=== PATIENT | female | born 1955 | race Caucasian/White ===

== ENCOUNTER 2017-05-17 10:00 | Day surgery (SDC) | payer MEDICARE, OTHER ==
[2017-05-13 14:02] LABS: BASOPHILS % (AUTO) 0.3 % (0-1); EOSINOPHILS # (AUTO) 0.2 X10'3 (0-0.9); EOSINOPHILS % (AUTO) 3.1 % (0-6); HEMATOCRIT 34.8 % (35.0-45.0); HEMOGLOBIN 11.3 g/dl (12.0-16.0); LYMPHOCYTES # (AUTO) 2.5 X10'3 (1.1-4.8); MEAN CORPUSCULAR HEMOGLOBIN 28.3 PG (27.0-31.0); MEAN CORPUSCULAR HGB CONC 32.6 % (33.0-36.5); MEAN CORPUSCULAR VOLUME 87.1 FL (78-98); MEAN PLATELET VOLUME 7.5 FL (7.4-10.4); MONOCYTES # (AUTO) 0.6 X10'3 (0-0.9); MONOCYTES % (AUTO) 8.3 % (2-12); NEUTROPHILS # (AUTO) 4.1 X10'3 (1.8-7.7); NEUTROPHILS % (AUTO) 54.3 % (42-75); PLATELET COUNT 317 X10'3 (140-440); RED CELL DISTRIBUTION WIDTH 15.8 % (11.5-14.5); WHITE BLOOD COUNT 7.5 X10'3 (4.5-11.0)
[2017-05-13 14:10] LABS: ALBUMIN 3.2 G/DL (3.4-5.0); ANION GAP 5 (8-16); BLOOD UREA NITROGEN 19 MG/DL (7-18); BUN/CREATININE RATIO 18.3 (6.6-38.0); CALCIUM 9.7 MG/DL (8.5-10.1); CHLORIDE 109 MMOL/L (99-107); CREATININE 1.04 MG/DL (0.40-0.90); GLUCOSE 97 MG/DL (70-104); POTASSIUM 4.6 MMOL/L (3.5-5.1); SODIUM 141 MMOL/L (135-145); TOTAL CARBON DIOXIDE 27.1 MMOL/L (24-32); eGFR 54 ML/MIN
[2017-05-13 14:12] LABS: INR 1.1 INR; PARTIAL THROMBOPLASTIN TIME 27 SECONDS (22-32); PROTHROMBIN TIME 11.2 SECONDS (9.0-12.0)
[2017-05-17] VITALS (11 sets, daily range): BP systolic 118–137; BP diastolic 42–77
[~2017-05-17] VITALS: Ht 165.1 cm; Wt 53.8 kg
[2017-05-17] MEDS ORDERED: ATOR80TA PO (10:26)
[2017-05-17] MEDS ORDERED: FLUO40CA10 PO (10:29)
[2017-05-17] MEDS ORDERED: LISI2.5T2 PO (10:29)
[2017-05-17] MEDS ORDERED: normal saline 1000ml 1,000 ML IV SCH ×2 (10:30→13:25)
[2017-05-17] MEDS ORDERED: ASPI81TA52 PO (10:30)
[2017-05-17] MEDS ORDERED: diphenhydrAMINE 25mg capsule PO PRN (10:30)
[2017-05-17] MEDS ORDERED: LORazepam 0.5 MG tablet PO PRN (10:30)
[2017-05-17] MEDS ORDERED: MYCO500T PO (10:31)
[2017-05-17] MEDS ORDERED: LEVO125T8 PO (10:32)
[2017-05-17] MEDS ORDERED: TICA90TA PO (10:33)
[2017-05-17] MEDS ORDERED: METO50TA7 PO (10:34)
[2017-05-17] MEDS ORDERED: ALB0.5UD IH (10:34)
[2017-05-17] MEDS ORDERED: TIOT18CA3 PO (10:35)
[2017-05-17] MEDS ORDERED: PRED5TAB PO (10:36)
[2017-05-17] MEDS ORDERED: TACR1CAP28 PO (10:36)
[2017-05-17] MEDS ORDERED: ALEN70TA48 PO (10:37)
[2017-05-17] MEDS ORDERED: CHOL200016 PO (10:39)
[2017-05-17] MEDS ORDERED: OMEP40CA37 PO (10:40)
[2017-05-17] MEDS ORDERED: FLU VACC QS2017-18 36MOS UP/PF 60 MCG/0.5 ML SYRINGE IMVAC ONE (11:36)
[2017-05-17] MEDS ORDERED: fentaNYL/PF 50MCG/1 ML 2ML syringe ONE (11:58)
[2017-05-17] MEDS ORDERED: IOHEXOL 350 MG/ML 150 ML injection IV ONE (11:58)
[2017-05-17] MEDS ORDERED: LIDOcaine 1%/PF (10mg/ml) 5ml vial ONE (11:58)
[2017-05-17] MEDS ORDERED: midazolam 2 mg/2 ml injection ONE (11:58)
[2017-05-17] MEDS ORDERED: iohexol 350 MG/ML 50ML vial IV ONE (12:24)
[2017-05-17] MEDS ORDERED: nitroGLYCERIN 0.4mg SUBLingual tab SL PRN (13:25)
[2017-05-17] MEDS ORDERED: ondansetron/PF 4mg/2ml inj IV PRN (13:25)
[2017-05-17] MEDS ORDERED: HYDROcodone/acetaminophen 10/325mg tab PO PRN (13:25)
[2017-05-17] MEDS ORDERED: OXAZEpam 15mg capsule PO PRN (13:25)
[2017-05-17] MEDS ORDERED: HYDROcodone/acetaminophen 5mg/325mg tablet PO PRN (13:25)
[2017-05-17] MEDS ORDERED: proCHLORperazine 10 MG/2 ml inj IV PRN (13:25)
== END 2017-05-17 17:15 | disposition home or self-care (01) ==
LOC: SSTAY O 10:00
PROVIDERS: ATTEND Internal Medicine Interventional Cardiology
DX: I25.10 Atherosclerotic heart disease of native coronary artery without angina pectoris (principal); I11.0 Hypertensive heart disease with heart failure; I50.9 Heart failure, unspecified; J44.9 Chronic obstructive pulmonary disease, unspecified; Z88.0 Allergy status to penicillin; F17.210 Nicotine dependence, cigarettes, uncomplicated; Z94.0 Kidney transplant status; Z79.82 Long term (current) use of aspirin; Z23 Encounter for immunization
CPT/HCPCS: 36415; 80048; 85025; 85610; 85730; 93458; 99152; 99153; A6257; A6258; C1769; G0008; J1644; J2001; J2250; J3010; J7030; Q0163; Q2037; Q9967; A4620

== ENCOUNTER 2017-05-27 12:43 | Outpatient (CLI) | payer MEDICARE, OTHER ==
[~2017-05-27 12:43] MED LIST: ALB0.5UD IH; ALEN70TA48 PO; ASPI81TA52 PO; ATOR80TA PO; CHOL200016 PO; FLUO40CA10 PO; LEVO125T8 PO; LISI2.5T2 PO; METO50TA7 PO; MYCO500T PO; OMEP40CA37 PO; PRED5TAB PO; TACR1CAP28 PO; TICA90TA PO; TIOT18CA3 PO
[2017-05-27] MEDS ORDERED: iohexol 350MG/ML 100ml bottle IV ONE (13:46)
== END 2017-05-27 23:59 | disposition home or self-care (01) ==
LOC: 64 CT 12:43
PROVIDERS: ATTEND Thoracic Surgery (Cardiothoracic Vascular Surgery)
DX: I72.3 Aneurysm of iliac artery (principal); I72.8 Aneurysm of other specified arteries; N26.1 Atrophy of kidney (terminal); I65.21 Occlusion and stenosis of right carotid artery; I51.7 Cardiomegaly; J44.9 Chronic obstructive pulmonary disease, unspecified; I13.0 Hypertensive heart and chronic kidney disease with heart failure and stage 1 through stage 4 chronic kidney disease, or unspecified chronic kidney disease; N18.9 Chronic kidney disease, unspecified; Z85.828 Personal history of other malignant neoplasm of skin
CPT/HCPCS: 71275; Q9967

== ENCOUNTER 2017-06-08 05:35 | Inpatient (IN) | payer MEDICARE, OTHER ==
[2017-06-06 14:25] LABS: ABG BASE EXCESS -2.3 mmol/L (-2.0-3.0); ABG OXYGEN SATURATION 96.4 % (95-98); ABG PCO2 (T) 36.1 mmHg (32.0-45.0); ABG PH (T) 7.403 (7.350-7.450); ABG PO2 (T) 88.7 mmHg (83-108); ALLEN'S TEST Positive; FCOHb 2.4 % (0.5-1.5); FMetHb 0.1 % (0.3-1.12); TOTAL HEMOGLOBIN 11.7 G/dl (12.0-16.0)
[2017-06-06 16:23] LABS: BASOPHILS # (AUTO) 0.1 X10'3 (0-0.2); BASOPHILS % (AUTO) 0.6 % (0-1); EOSINOPHILS # (AUTO) 0.1 X10'3 (0-0.9); EOSINOPHILS % (AUTO) 1.7 % (0-6); LYMPHOCYTES # (AUTO) 1.2 X10'3 (1.1-4.8); LYMPHOCYTES % (AUTO) 13.7 % (21-51); MEAN CORPUSCULAR HEMOGLOBIN 28.5 PG (27.0-31.0); MEAN CORPUSCULAR HGB CONC 32.4 % (33.0-36.5); MEAN CORPUSCULAR VOLUME 87.9 FL (78-98); MEAN PLATELET VOLUME 8.2 FL (7.4-10.4); MONOCYTES # (AUTO) 0.4 X10'3 (0-0.9); MONOCYTES % (AUTO) 4.4 % (2-12); NEUTROPHILS # (AUTO) 7.1 X10'3 (1.8-7.7); NEUTROPHILS % (AUTO) 79.6 % (42-75); PRE OP HEMATOCRIT 34.2 % (35.0-45.0); PRE OP HEMOGLOBIN 11.1 g/dL (12.0-16.0); PRE OP PLATELET COUNT 277 X10'3 (140-440); RED BLOOD COUNT 3.89 X10'6 (4.20-5.60); RED CELL DISTRIBUTION WIDTH 17.4 % (11.5-14.5)
[2017-06-06 16:31] LABS: HEMOGLOBIN A1C 5.9 % (4.5-6.2)
[2017-06-06 16:32] LABS: PRE OP INR 1.1 INR; PRE OP PROTIME 10.9 SECONDS (9.0-12.0)
[2017-06-06 16:35] LABS: ALBUMIN 3.5 G/DL (3.4-5.0); ALBUMIN/GLOBULIN RATIO 0.8 (1.1-1.5); ALKALINE PHOSPHATASE 98 IU/L (46-116); BLOOD UREA NITROGEN 26 MG/DL (7-18); CALCIUM 10.3 MG/DL (8.5-10.1); CHLORIDE 106 MMOL/L (99-107); PRE OP ALT 18 U/L (30-65); PRE OP ANION GAP 9 (8-16); PRE OP AST 9 U/L (10-37); PRE OP BILIRUB, TOTAL 0.5 MG/DL (0.0-1.0); PRE OP GLUCOSE 94 MG/DL (70-104); PRE OP POTASSIUM 4.5 MMOL/L (3.4-5.1); PRE OP SODIUM 139 MMOL/L (135-145); TOTAL CARBON DIOXIDE 24.5 MMOL/L (24-32); TOTAL PROTEIN 7.7 G/DL (6.4-8.2); eGFR 56 ML/MIN
[2017-06-06 16:40] LABS: CLARITY,URINE CLEAR (Clear); COLOR,URINE YELLOW (Yellow); GLUCOSE, URINE NEGATIVE (Neg); KETONES,URINE NEGATIVE (Neg); LEUKOCYTE ESTERASE ,URINE NEGATIVE (Neg); NITRITES, URINE NEGATIVE (Neg); OCCULT BLOOD,URINE TRACE-INTACT (Neg); PH,URINE 5.5 (4.8-8.0); PROTEIN,URINE NEGATIVE (Neg)
[2017-06-06 16:46] LABS: UA COLLECTION TYPE CLN CATCH MIDSTREAM
[2017-06-06 16:50] LABS: BACTERIA,URINE FEW /HPF (Neg); RBC,URINE 0-2 /HPF (0-2); SQUAMOUS EPITHELIAL CELL,UR FEW /LPF (FEW); WBC,URINE 0-4 /HPF (0-4)
[~2017-06-08] VITALS: Ht 165.1 cm; Wt 61.1 kg
[2017-06-08] VITALS (24 sets, daily range): BP systolic 100–146; BP diastolic 56–80
[~2017-06-08 05:35] MED LIST changes: +DOCUMENT DATE & TIME OF BETA-BLOCKER PO ONE; -LISI2.5T2 PO; +LORazepam 2 mg/ml vial IV ONE; -OMEP40CA37 PO; -TICA90TA PO; -TIOT18CA3 PO; +VANCOMYCIN INJ 1000 MG in NORMAL SALINE 250ml IV.SOLN IV ONE; +albuterol 2.5 MG/3 ML nebule NEB ONE; +ceFAZolin 2gm in dextrose, iso 100 ML IV ONE; +dextrose 50%-water 50ml dispensing syringe IV PRN; +famotidine 20mg tablet PO ONE; +hydrocortisone sod succ/PF 100mg/2ml inj. IV ONE; +ringers solution, lacted 1,000 ML IV SCH
[2017-06-08] MEDS ORDERED: LIDOcaine 1% (10mg/ml) 2ml vial ONE (06:16)
[2017-06-08] MEDS: mupirocin 2% ointment 22GM TP SCH ×2 (06:48→08:00)
[2017-06-08] MEDS ORDERED: NORMAL SALINE IV ONE (06:55)
[2017-06-08] MEDS ORDERED: TRANEXAMIC ACID IV ONE (06:55)
[2017-06-08] MEDS ORDERED: DOBUTamine/D5W 500mg/250ml premix IV ONE (07:15)
[2017-06-08] MEDS ORDERED: isoflurane 100ml inhalation liquid IH ONE (07:15)
[2017-06-08] MEDS ORDERED: nitroGLYCERIN in D5W 50mg/250ml (Tridil) infusion IV ONE (07:15)
[2017-06-08] MEDS ORDERED: SUFENTANIL CITRATE 50 MCG/ML 2ml ampule IV ONE (07:19)
[2017-06-08] MEDS ORDERED: LORazepam 2 mg/ml vial ONE (07:22)
[2017-06-08] MEDS ORDERED: rocuronium 10mg/ml inj IV ONE ×3 (07:37→16:22)
[2017-06-08 08:22] LABS: ABG BASE EXCESS -5.6 mmol/L (-2.0-3.0); ABG HCO3 18.9 mmol/L (22.0-26.0); ABG OXYGEN SATURATION 98.7 % (95-98); ABG PCO2 33.4 mmHg (35.0-45.0); ABG PH 7.371 (7.350-7.450); ABG PO2 193.2 mmHg (60.0-100.0); CL (ABG) 109 mmol/L (99-107); FMetHb 0.7 % (0.3-1.12); GLUCOSE (ABG) 104 mg/dl (70-105); IONIZED CA (ABG) 1.25 mmol/L (1.03-1.32); K (ABG) 4.2 mmol/L (3.3-5.1); NA (ABG) 137 mmol/L (135-145); TOTAL HEMOGLOBIN 9.9 G/dl (12.0-16.0)
[2017-06-08 09:35] LABS: ABG BASE EXCESS -6.8 mmol/L (-2.0-3.0); ABG HCO3 18.4 mmol/L (22.0-26.0); ABG OXYGEN SATURATION 98.8 % (95-98); ABG PCO2 35.6 mmHg (35.0-45.0); ABG PH 7.332 (7.350-7.450); ABG PO2 157.5 mmHg (60.0-100.0); CL (ABG) 109 mmol/L (99-107); FCOHb 0.5 % (0.5-1.5); FMetHb 0.1 % (0.3-1.12); FO2Hb 98.2 % (94-100); GLUCOSE (ABG) 130 mg/dl (70-105); IONIZED CA (ABG) 1.24 mmol/L (1.03-1.32); K (ABG) 4.3 mmol/L (3.3-5.1); NA (ABG) 135 mmol/L (135-145); TOTAL HEMOGLOBIN 9.5 G/dl (12.0-16.0)
[2017-06-08 10:00] LABS: ABG BASE EXCESS -3.1 mmol/L (-2.0-3.0); ABG HCO3 21.5 mmol/L (22.0-26.0); ABG OXYGEN SATURATION 99.7 % (95-98); ABG PCO2 35.8 mmHg (35.0-45.0); ABG PH 7.396 (7.350-7.450); ABG PO2 485.8 mmHg (60.0-100.0); CL (ABG) 107 mmol/L (99-107); FCOHb 1.1 % (0.5-1.5); FMetHb 0.3 % (0.3-1.12); FO2Hb 98.3 % (94-100); GLUCOSE (ABG) 177 mg/dl (70-105); K (ABG) 4.4 mmol/L (3.3-5.1); NA (ABG) 135 mmol/L (135-145)
[2017-06-08] MEDS ORDERED: MAGNESIUM SULFATE 4 MEQ/ML (1gm/2ml) injection ONE (10:00)
[2017-06-08] MEDS ORDERED: phenylephrine 10mg/ml inj IV ONE (10:00)
[2017-06-08] MEDS ORDERED: potassium Cl 2 mEq/ml inj IV ONE (10:00)
[2017-06-08] MEDS ORDERED: LIDOcaine 2% (20 mg/ml) 5ml cardiac syringe ONE (10:00)
[2017-06-08] MEDS ORDERED: albumin (human) 25% 100 ML IV solution IV ONE (10:00)
[2017-06-08] MEDS ORDERED: sodium bicarbonate (8.4%) 1 mEq/ml syringe ONE (10:00)
[2017-06-08] MEDS ORDERED: calcium chloride 100 MG/1 ML inj IV ONE (10:00)
[2017-06-08] MEDS ORDERED: heparin 1,000 units/ml 10ml inj ONE (10:00)
[2017-06-08] MEDS ORDERED: methylPREDNISolone sod. succ. 500mg inj ONE (10:00)
[2017-06-08 10:31] LABS: ABG BASE EXCESS -0.1 mmol/L (-2.0-3.0); ABG HCO3 23.7 mmol/L (22.0-26.0); ABG OXYGEN SATURATION 99.6 % (95-98); ABG PCO2 34.5 mmHg (35.0-45.0); ABG PH 7.455 (7.350-7.450); ABG PO2 499.5 mmHg (60.0-100.0); CL (ABG) 107 mmol/L (99-107); FCOHb 1.1 % (0.5-1.5); FMetHb 0.3 % (0.3-1.12); FO2Hb 98.2 % (94-100); GLUCOSE (ABG) 214 mg/dl (70-105); IONIZED CA (ABG) 1.03 mmol/L (1.03-1.32); NA (ABG) 135 mmol/L (135-145); TOTAL HEMOGLOBIN 6.4 G/dl (12.0-16.0)
[2017-06-08 11:06] LABS: ABG BASE EXCESS VENOUS -2.4 mmol/L; ABG HCO3 VENOUS 23.7 mmol/L; ABG PCO2 VENOUS 48.2 mmHg; ABG PO2 VENOUS 64.5 mmHg; CL (ABG) 109 mmol/L (99-107); FCOHb VENOUS 0.6 %; FHHb VENOUS 9.7 %; FMetHb VENOUS 0.8 %; FO2Hb VENOUS 88.9 %; GLUCOSE (ABG) 201 mg/dl (70-105); K (ABG) 5.5 mmol/L (3.3-5.1); NA (ABG) 134 mmol/L (135-145)
[2017-06-08 11:31] LABS: ACT @ 1.70 U 357 SEC (193-297); ACT @ 2.84 U 546 SEC (260-420); BASELINE ACT 151 SEC (101-148); PATIENT WEIGHT 53.0k KG
[2017-06-08 11:46] LABS: ABG BASE EXCESS -3.2 mmol/L (-2.0-3.0); ABG HCO3 23.2 mmol/L (22.0-26.0); ABG OXYGEN SATURATION 99.2 % (95-98); ABG PH 7.285 (7.350-7.450); ABG PO2 509.9 mmHg (60.0-100.0); CL (ABG) 111 mmol/L (99-107); FCOHb 0.5 % (0.5-1.5); FMetHb 0.9 % (0.3-1.12); FO2Hb 97.8 % (94-100); GLUCOSE (ABG) 178 mg/dl (70-105); K (ABG) 4.9 mmol/L (3.3-5.1); NA (ABG) 136 mmol/L (135-145)
[2017-06-08 11:51] LABS: ABG BASE EXCESS 2.3 mmol/L (-2.0-3.0); ABG HCO3 26.9 mmol/L (22.0-26.0); ABG OXYGEN SATURATION 99.1 % (95-98); ABG PCO2 42.3 mmHg (35.0-45.0); ABG PH 7.422 (7.350-7.450); ABG PO2 515.1 mmHg (60.0-100.0); CL (ABG) 109 mmol/L (99-107); FCOHb 0.2 % (0.5-1.5); FMetHb 0.6 % (0.3-1.12); FO2Hb 98.3 % (94-100); GLUCOSE (ABG) 191 mg/dl (70-105); IONIZED CA (ABG) 0.97 mmol/L (1.03-1.32); K (ABG) 4.9 mmol/L (3.3-5.1); NA (ABG) 138 mmol/L (135-145); TOTAL HEMOGLOBIN 8.1 G/dl (12.0-16.0)
[2017-06-08 12:15] LABS: ABG BASE EXCESS -2.2 mmol/L (-2.0-3.0); ABG HCO3 21.8 mmol/L (22.0-26.0); ABG OXYGEN SATURATION 98.8 % (95-98); ABG PCO2 33.6 mmHg (35.0-45.0); ABG PH 7.429 (7.350-7.450); ABG PO2 397.9 mmHg (60.0-100.0); CL (ABG) 111 mmol/L (99-107); FCOHb 0.4 % (0.5-1.5); FMetHb 0.7 % (0.3-1.12); FO2Hb 97.7 % (94-100); GLUCOSE (ABG) 167 mg/dl (70-105); IONIZED CA (ABG) 1.06 mmol/L (1.03-1.32); K (ABG) 4.6 mmol/L (3.3-5.1); NA (ABG) 138 mmol/L (135-145); TOTAL HEMOGLOBIN 8.2 G/dl (12.0-16.0)
[2017-06-08 13:21] LABS: ABG PCO2 39.8 mmHg (35.0-45.0); ABG PH 7.379 (7.350-7.450); ABG PO2 405.3 mmHg (60.0-100.0); CL (ABG) 114 mmol/L (99-107); FCOHb 0.4 % (0.5-1.5); FMetHb 0.8 % (0.3-1.12); FO2Hb 97.8 % (94-100); GLUCOSE (ABG) 134 mg/dl (70-105); IONIZED CA (ABG) 1.05 mmol/L (1.03-1.32); K (ABG) 5.1 mmol/L (3.3-5.1); NA (ABG) 140 mmol/L (135-145); TOTAL HEMOGLOBIN 7.3 G/dl (12.0-16.0)
[2017-06-08 13:51] LABS: ABG BASE EXCESS -1.1 mmol/L (-2.0-3.0); ABG HCO3 22.2 mmol/L (22.0-26.0); ABG OXYGEN SATURATION 99.1 % (95-98); ABG PCO2 30.9 mmHg (35.0-45.0); ABG PH 7.474 (7.350-7.450); ABG PO2 325.7 mmHg (60.0-100.0); CL (ABG) 113 mmol/L (99-107); FCOHb 0.7 % (0.5-1.5); FMetHb 0.7 % (0.3-1.12); FO2Hb 97.7 % (94-100); GLUCOSE (ABG) 122 mg/dl (70-105); IONIZED CA (ABG) 1.05 mmol/L (1.03-1.32); K (ABG) 5.5 mmol/L (3.3-5.1); NA (ABG) 139 mmol/L (135-145); TOTAL HEMOGLOBIN 7.3 G/dl (12.0-16.0)
[2017-06-08 14:30] LABS: ABG BASE EXCESS 1.2 mmol/L (-2.0-3.0); ABG HCO3 25.5 mmol/L (22.0-26.0); ABG OXYGEN SATURATION 98.9 % (95-98); ABG PCO2 38.7 mmHg (35.0-45.0); ABG PH 7.436 (7.350-7.450); ABG PO2 371.4 mmHg (60.0-100.0); CL (ABG) 112 mmol/L (99-107); FCOHb 0.5 % (0.5-1.5); FMetHb 1.1 % (0.3-1.12); FO2Hb 97.3 % (94-100); GLUCOSE (ABG) 121 mg/dl (70-105); IONIZED CA (ABG) 1.39 mmol/L (1.03-1.32); NA (ABG) 141 mmol/L (135-145)
[2017-06-08 15:25] LABS: ABG BASE EXCESS 0.4 mmol/L (-2.0-3.0); ABG HCO3 24.6 mmol/L (22.0-26.0); ABG OXYGEN SATURATION 98.9 % (95-98); ABG PCO2 37.2 mmHg (35.0-45.0); ABG PH 7.439 (7.350-7.450); ABG PO2 225.7 mmHg (60.0-100.0); CL (ABG) 111 mmol/L (99-107); FMetHb 1.1 % (0.3-1.12); FO2Hb 96.8 % (94-100); GLUCOSE (ABG) 111 mg/dl (70-105); IONIZED CA (ABG) 0.92 mmol/L (1.03-1.32); K (ABG) 4.1 mmol/L (3.3-5.1); NA (ABG) 143 mmol/L (135-145)
[2017-06-08 15:56] LABS: ABG BASE EXCESS -1.2 mmol/L (-2.0-3.0); ABG HCO3 23.4 mmol/L (22.0-26.0); ABG OXYGEN SATURATION 98.4 % (95-98); ABG PCO2 38.4 mmHg (35.0-45.0); ABG PH 7.403 (7.350-7.450); ABG PO2 165.5 mmHg (60.0-100.0); CL (ABG) 112 mmol/L (99-107); FMetHb 0.8 % (0.3-1.12); FO2Hb 97.6 % (94-100); GLUCOSE (ABG) 112 mg/dl (70-105); IONIZED CA (ABG) 1.19 mmol/L (1.03-1.32); K (ABG) 4.5 mmol/L (3.3-5.1); NA (ABG) 141 mmol/L (135-145); TOTAL HEMOGLOBIN 7.3 G/dl (12.0-16.0)
[2017-06-08] MEDS ORDERED: albuterol 2.5 MG/3 ML nebule NEB PRN (16:15)
[2017-06-08 16:16] LABS: BASOPHILS % (AUTO) 0.2 % (0-1); EOSINOPHILS # (AUTO) 0.1 X10'3 (0-0.9); EOSINOPHILS % (AUTO) 1.4 % (0-6); LYMPHOCYTES # (AUTO) 0.7 X10'3 (1.1-4.8); MEAN CORPUSCULAR HEMOGLOBIN 30.2 PG (27.0-31.0); MEAN CORPUSCULAR HGB CONC 34.7 % (33.0-36.5); MEAN CORPUSCULAR VOLUME 87.1 FL (78-98); MEAN PLATELET VOLUME 7.7 FL (7.4-10.4); MONOCYTES # (AUTO) 0.6 X10'3 (0-0.9); MONOCYTES % (AUTO) 6.9 % (2-12); NEUTROPHILS # (AUTO) 7.8 X10'3 (1.8-7.7); NEUTROPHILS % (AUTO) 83.5 % (42-75); PLATELET COUNT 105 X10'3 (140-440); RED BLOOD COUNT 2.24 X10'6 (4.20-5.60); RED CELL DISTRIBUTION WIDTH 15.9 % (11.5-14.5); WHITE BLOOD COUNT 9.3 X10'3 (4.5-11.0)
[2017-06-08] MEDS ORDERED: nitroGLYCERIN-Tridil 50MG/D5W 250 ML IV PRN (16:16)
[2017-06-08] MEDS ORDERED: DOPamine 400mg/D5W 250ml 250 ML IV PRN (16:16)
[2017-06-08] MEDS ORDERED: metoclopramide 5 mg/ml inj IV PRN (16:20)
[2017-06-08] MEDS ORDERED: ondansetron/PF 4mg/2ml inj IV PRN (16:20)
[2017-06-08] MEDS ORDERED: magnesium 4gm in 100ml NS 100 ML IV PRN (16:20)
[2017-06-08] MEDS ORDERED: sodium phosphate inj. 15 MMOL in dextrose 5%-water 150 ML IV PRN (16:20)
[2017-06-08] MEDS ORDERED: normal saline 250ml IV soln 250 ML IV PRN (16:20)
[2017-06-08] MEDS ORDERED: magnesium hydroxide 30ml (MOM) UD suspension PO PRN (16:20)
[2017-06-08] MEDS ORDERED: insulin regular, human inj. 100 UNITS in normal saline 100ml IV soln 100 ML IV SCH ×2 (16:20)
[2017-06-08] MEDS ORDERED: acetaminophen 325mg tablet PO PRN (16:20)
[2017-06-08] MEDS ORDERED: sodium phosphate inj. 30 MMOL in dextrose 5%-water 250 ML IV PRN (16:20)
[2017-06-08] MEDS ORDERED: dextrose 50%-water 50ml dispensing syringe IV PRN (16:20)
[2017-06-08] MEDS ORDERED: potassium Cl 20mEq/100mL bag 100 ML IV PRN ×3 (16:20)
[2017-06-08] MEDS ORDERED: propofol inj 20 ML IV ONE (16:22)
[2017-06-08 16:24] LABS: HEMOGLOBIN 6.8 g/dl (12.0-16.0)
[2017-06-08 16:25] LABS: HEMATOCRIT 19.5 % (35.0-45.0)
[2017-06-08 16:31] LABS: ALANINE AMINOTRANSFERASE 20 U/L (12-78); ALBUMIN 1.8 G/DL (3.4-5.0); ALBUMIN/GLOBULIN RATIO 0.9 (1.1-1.5); ALKALINE PHOSPHATASE 38 IU/L (46-116); ANION GAP 9 (8-16); ASPARTATE AMINO TRANSFERASE 30 U/L (10-37); BILIRUBIN,TOTAL 0.6 MG/DL (0.1-1.0); BLOOD UREA NITROGEN 28 MG/DL (7-18); BUN/CREATININE RATIO 31.1 (6.6-38.0); CALCIUM 9.6 MG/DL (8.5-10.1); CHLORIDE 113 MMOL/L (99-107); GLUCOSE 114 MG/DL (70-104); SODIUM 148 MMOL/L (135-145); TOTAL CARBON DIOXIDE 25.9 MMOL/L (24-32); TOTAL PROTEIN 3.8 G/DL (6.4-8.2); eGFR 63 ML/MIN
[2017-06-08 16:42] LABS: POTASSIUM 4.6 MMOL/L (3.5-5.1)
[2017-06-08 16:51] LABS: TOTAL HEMOGLOBIN 9.4 G/dl (12.0-16.0)
[2017-06-08 17:29] LABS: INR 1.3 INR; PARTIAL THROMBOPLASTIN TIME 34 SECONDS (22-32); PROTHROMBIN TIME 13.2 SECONDS (9.0-12.0)
[2017-06-08] MEDS: insulin Lispro (HumaLOG) vial - multi-dose SQ SCH (18:00)
[2017-06-08] MEDS: sodium chloride 0.45% 1,000 ML IV SCH (18:09)
[2017-06-08 18:13] LABS: ALANINE AMINOTRANSFERASE 22 U/L (12-78); ALKALINE PHOSPHATASE 42 IU/L (46-116); ANION GAP 6 (8-16); BILIRUBIN,TOTAL 1.3 MG/DL (0.1-1.0); BLOOD UREA NITROGEN 28 MG/DL (7-18); CALCIUM 9.3 MG/DL (8.5-10.1); CHLORIDE 116 MMOL/L (99-107); GLUCOSE 152 MG/DL (70-104); MAGNESIUM 2.6 MG/DL (1.5-2.4); SODIUM 148 MMOL/L (135-145); TOTAL CARBON DIOXIDE 25.7 MMOL/L (24-32); TOTAL PROTEIN 4.1 G/DL (6.4-8.2); eGFR 73 ML/MIN
[2017-06-08] MEDS: insulin regular, human 100 UNITS in normal saline 100ml IV soln 99 ML IV SCH ×8 (18:17→23:21)
[2017-06-08 18:19] LABS: ASPARTATE AMINO TRANSFERASE 50 U/L (10-37); PHOSPHORUS 2.1 MG/DL (2.3-4.5); POTASSIUM 4.6 MMOL/L (3.5-5.1)
[2017-06-08] MEDS: morphine 2 MG/ML inj. syringe IV PRN ×2 (19:28→23:19)
[2017-06-08 19:30] LABS: ABG BASE EXCESS -0.1 mmol/L (-2.0-3.0); ABG HCO3 24.6 mmol/L (22.0-26.0); ABG OXYGEN SATURATION 87.7 % (95-98); ABG PCO2 (T) 38.6 mmHg (32.0-45.0); ABG PH (T) 7.418 (7.350-7.450); ABG PO2 (T) 47.8 mmHg (83-108); FCOHb 0.3 % (0.5-1.5); FMetHb 0.2 % (0.3-1.12); FO2Hb 87.3 % (94-100); MINUTE VOLUME 9 L/min; PATIENT TEMPERATURE 35.8; PEEP 5 cm H2O; RESPIRATORY RATE 12 b/min; RESPIRATORY RATE (OBSERVED) 20 b/min; TIDAL VOLUME 450 mL; TOTAL HEMOGLOBIN 11.9 G/dl (12.0-16.0)
[2017-06-08] MEDS ORDERED: propofol 1000mg/100ml bottle 100 ML IV PRN (19:39)
[2017-06-08] MEDS: docusate sod 100mg capsule PO SCH (20:00)
[2017-06-08] MEDS: DOBUTamine-DoBUTrex 500mg/D5W 250 ML IV SCH (20:05)
[2017-06-08 20:15] LABS: ABG BASE EXCESS 1.7 mmol/L (-2.0-3.0); ABG HCO3 26.4 mmol/L (22.0-26.0); ABG OXYGEN SATURATION 96.1 % (95-98); ABG PH (T) 7.433 (7.350-7.450); FCOHb 0.3 % (0.5-1.5); FMetHb 0.1 % (0.3-1.12); FO2Hb 95.7 % (94-100); MINUTE VOLUME 8 L/min; PEEP 7 cm H2O; RESPIRATORY RATE 12 b/min; RESPIRATORY RATE (OBSERVED) 15 b/min; TIDAL VOLUME 450 mL; TOTAL HEMOGLOBIN 10.9 G/dl (12.0-16.0)
[2017-06-08] MEDS: vancomycin/NS 1 GM ADD-VANTAGE 250 ML IV SCH (22:12)
[2017-06-08] MEDS: mupirocin 2% ointment 22GM NS SCH (22:12)
[2017-06-08] MEDS: mycophenolate mofetil 250mg capsule PO SCH (22:12)
[2017-06-08] MEDS: tacrolimus anhydrous 1mg capsule PO SCH (22:13)
[2017-06-08 23:19] LABS: BASOPHILS % (AUTO) 0.1 % (0-1); EOSINOPHILS % (AUTO) 0.4 % (0-6); HEMATOCRIT 31.2 % (35.0-45.0); HEMOGLOBIN 10.9 g/dl (12.0-16.0); LYMPHOCYTES # (AUTO) 0.5 X10'3 (1.1-4.8); LYMPHOCYTES % (AUTO) 4.6 % (21-51); MEAN CORPUSCULAR HEMOGLOBIN 30.9 PG (27.0-31.0); MEAN CORPUSCULAR VOLUME 88.2 FL (78-98); MEAN PLATELET VOLUME 8.1 FL (7.4-10.4); MONOCYTES # (AUTO) 0.9 X10'3 (0-0.9); MONOCYTES % (AUTO) 8.2 % (2-12); NEUTROPHILS % (AUTO) 86.7 % (42-75); PLATELET COUNT 163 X10'3 (140-440); RED BLOOD COUNT 3.53 X10'6 (4.20-5.60); RED CELL DISTRIBUTION WIDTH 14.9 % (11.5-14.5); WHITE BLOOD COUNT 10.4 X10'3 (4.5-11.0)
[2017-06-08 23:28] LABS: ALBUMIN 2.5 G/DL (3.4-5.0); ANION GAP 6 (8-16); BLOOD UREA NITROGEN 33 MG/DL (7-18); CHLORIDE 113 MMOL/L (99-107); GLUCOSE 161 MG/DL (70-104); POTASSIUM 4.9 MMOL/L (3.5-5.1); SODIUM 146 MMOL/L (135-145); TOTAL CARBON DIOXIDE 26.8 MMOL/L (24-32); eGFR 50 ML/MIN
[2017-06-09] VITALS (24 sets, daily range): BP systolic 106–157; BP diastolic 51–77
[2017-06-09] MEDS: cefazolin 1gm/NS 100mL 100 ML IV SCH ×4 (01:33→23:43)
[2017-06-09] MEDS: albumin (Human) 5% 250ml 250 ML IV PRN ×3 (01:44→15:32)
[2017-06-09] MEDS: insulin regular, human 100 UNITS in normal saline 100ml IV soln 99 ML IV SCH ×8 (02:24→12:19)
[2017-06-09] MEDS: morphine 2 MG/ML inj. syringe IV PRN ×3 (03:34→21:33)
[2017-06-09 04:05] LABS: BASOPHILS % (AUTO) 0 % (0-1); EOSINOPHILS % (AUTO) 0 % (0-6); HEMATOCRIT 28.6 % (35.0-45.0); HEMOGLOBIN 9.9 g/dl (12.0-16.0); LYMPHOCYTES # (AUTO) 0.6 X10'3 (1.1-4.8); LYMPHOCYTES % (AUTO) 5.9 % (21-51); MEAN CORPUSCULAR HEMOGLOBIN 30.3 PG (27.0-31.0); MEAN CORPUSCULAR HGB CONC 34.7 % (33.0-36.5); MEAN CORPUSCULAR VOLUME 87.3 FL (78-98); MEAN PLATELET VOLUME 8.4 FL (7.4-10.4); MONOCYTES # (AUTO) 0.9 X10'3 (0-0.9); MONOCYTES % (AUTO) 8.9 % (2-12); NEUTROPHILS # (AUTO) 8.4 X10'3 (1.8-7.7); NEUTROPHILS % (AUTO) 85.2 % (42-75); PLATELET COUNT 160 X10'3 (140-440); RED BLOOD COUNT 3.27 X10'6 (4.20-5.60); RED CELL DISTRIBUTION WIDTH 15.4 % (11.5-14.5); WHITE BLOOD COUNT 9.8 X10'3 (4.5-11.0)
[2017-06-09 04:20] LABS: ABG BASE EXCESS -1.4 mmol/L (-2.0-3.0); ABG HCO3 23.3 mmol/L (22.0-26.0); ABG OXYGEN SATURATION 98.2 % (95-98); ABG PCO2 (T) 38.5 mmHg (32.0-45.0); ABG PH (T) 7.399 (7.350-7.450); ABG PO2 (T) 143.8 mmHg (83-108); FCOHb 0.3 % (0.5-1.5); FMetHb 0.3 % (0.3-1.12); FO2Hb 97.6 % (94-100); MINUTE VOLUME 7 L/min; PATIENT TEMPERATURE 36.8; PEEP 7 cm H2O; RESPIRATORY RATE 12 b/min; RESPIRATORY RATE (OBSERVED) 15 b/min; TIDAL VOLUME 450 mL; TOTAL HEMOGLOBIN 10.9 G/dl (12.0-16.0)
[2017-06-09 04:26] LABS: INR 1.1 INR; PARTIAL THROMBOPLASTIN TIME 27 SECONDS (22-32); PROTHROMBIN TIME 11.4 SECONDS (9.0-12.0)
[2017-06-09] MEDS ORDERED: epiNEPHrine inj 5 MG, calcium chloride inj. 1,000 MG in normal saline 250ml IV soln 235 ML IV SCH (04:30)
[2017-06-09 04:40] LABS: ALANINE AMINOTRANSFERASE 27 U/L (12-78); ALBUMIN 2.8 G/DL (3.4-5.0); ALBUMIN/GLOBULIN RATIO 1.1 (1.1-1.5); ALKALINE PHOSPHATASE 41 IU/L (46-116); ANION GAP 6 (8-16); ASPARTATE AMINO TRANSFERASE 58 U/L (10-37); BILIRUBIN,TOTAL 1.3 MG/DL (0.1-1.0); BLOOD UREA NITROGEN 34 MG/DL (7-18); BUN/CREATININE RATIO 30.9 (6.6-38.0); CALCIUM 8.8 MG/DL (8.5-10.1); CHLORIDE 114 MMOL/L (99-107); GLUCOSE 95 MG/DL (70-104); MAGNESIUM 2.4 MG/DL (1.5-2.4); PHOSPHORUS 3.7 MG/DL (2.3-4.5); POTASSIUM 4.7 MMOL/L (3.5-5.1); SODIUM 147 MMOL/L (135-145); TOTAL CARBON DIOXIDE 26.8 MMOL/L (24-32); TOTAL PROTEIN 5.4 G/DL (6.4-8.2); eGFR 50 ML/MIN
[2017-06-09] MEDS: magnesium 2GM in 50ml NS 50 ML IV PRN (05:05)
[2017-06-09 05:21] LABS: ACTIVATED CLOTTING TIME 130 SEC (101-148)
[2017-06-09 06:14] LABS: TOTAL HEMOGLOBIN 6.7 G/dl (12.0-16.0)
[2017-06-09 06:15] LABS: TOTAL HEMOGLOBIN 5.4 G/dl (12.0-16.0)
[2017-06-09] MEDS: pantoprazole 40mg Tablet.DR PO SCH (06:50)
[2017-06-09] MEDS ORDERED: predniSONE 5mg tablet PO SCH (08:00)
[2017-06-09] MEDS ORDERED: atorvastatin 10mg tablet PO SCH (08:00)
[2017-06-09] MEDS: metoprolol tartrate 12.5mg (1/2 tablet) PO SCH ×2 (08:00→23:01)
[2017-06-09] MEDS: mupirocin 2% ointment 22GM NS SCH ×2 (08:27→20:31)
[2017-06-09] MEDS: docusate sod 100mg capsule PO SCH ×2 (08:28→20:00)
[2017-06-09] MEDS: mycophenolate mofetil 250mg capsule PO SCH ×2 (08:28→23:04)
[2017-06-09] MEDS: FLUoxetine 20mg capsule PO SCH (08:28)
[2017-06-09] MEDS: levoTHYROXINE 125mcg tablet PO SCH (08:28)
[2017-06-09] MEDS: tacrolimus anhydrous 1mg capsule PO SCH ×2 (08:28→23:04)
[2017-06-09] MEDS: vitamin D (cholecalciferol) 1,000 unit tablet PO SCH (08:28)
[2017-06-09] MEDS: aspirin 325mg tablet, delayed-release (Ecotrin) PO SCH (08:28)
[2017-06-09] MEDS: vancomycin/NS 1 GM ADD-VANTAGE 250 ML IV SCH ×2 (08:51→20:31)
[2017-06-09] MEDS: insulin Lispro (HumaLOG) vial - multi-dose SQ SCH ×3 (09:00→18:00)
[2017-06-09] MEDS ORDERED: non-formulary drug (Alendronate Sodium* (Fosamax*) 1 TABLET) PO SCH (09:10)
[2017-06-09] MEDS ORDERED: aspirin 81mg tablet.DR PO SCH (09:18)
[2017-06-09 14:36] LABS: ABG BASE EXCESS -1.2 mmol/L (-2.0-3.0); ABG PCO2 (T) 36.2 mmHg (32.0-45.0); ABG PO2 (T) 99.8 mmHg (83-108); FCOHb 0.3 % (0.5-1.5); FMetHb 0.2 % (0.3-1.12); FO2Hb 96.5 % (94-100); MINUTE VOLUME 8 L/min; PEEP 5 cm H2O; RESPIRATORY RATE (OBSERVED) 18 b/min; TOTAL HEMOGLOBIN 9.8 G/dl (12.0-16.0)
[2017-06-09] MEDS: methylPREDNISolone sod succ 125mg/2ml vial IV SCH ×2 (16:55→23:43)
[2017-06-09] MEDS: niCARDipine/sod cl 20mg/200ml 200 ML IV PRN (23:44)
[2017-06-10] VITALS (24 sets, daily range): BP systolic 106–164; BP diastolic 50–87
[2017-06-10] MEDS: morphine 2 MG/ML inj. syringe IV PRN ×2 (02:07→21:26)
[2017-06-10 03:03] LABS: BASOPHILS % (AUTO) 0 % (0-1); EOSINOPHILS # (AUTO) 0.1 X10'3 (0-0.9); EOSINOPHILS % (AUTO) 1.1 % (0-6); HEMATOCRIT 23.4 % (35.0-45.0); HEMOGLOBIN 8.1 g/dl (12.0-16.0); LYMPHOCYTES # (AUTO) 0.4 X10'3 (1.1-4.8); LYMPHOCYTES % (AUTO) 3.4 % (21-51); MEAN CORPUSCULAR HGB CONC 34.8 % (33.0-36.5); MEAN CORPUSCULAR VOLUME 89.1 FL (78-98); MEAN PLATELET VOLUME 8.6 FL (7.4-10.4); MONOCYTES # (AUTO) 0.8 X10'3 (0-0.9); MONOCYTES % (AUTO) 6.1 % (2-12); NEUTROPHILS # (AUTO) 11.6 X10'3 (1.8-7.7); NEUTROPHILS % (AUTO) 89.4 % (42-75); PLATELET COUNT 128 X10'3 (140-440); RED BLOOD COUNT 2.62 X10'6 (4.20-5.60); RED CELL DISTRIBUTION WIDTH 15.9 % (11.5-14.5); WHITE BLOOD COUNT 12.9 X10'3 (4.5-11.0)
[2017-06-10] MEDS: niCARDipine/sod cl 20mg/200ml 200 ML IV PRN (03:07)
[2017-06-10 03:11] LABS: ABG HCO3 21.4 mmol/L (22.0-26.0); ABG OXYGEN SATURATION 90.8 % (95-98); ABG PCO2 (T) 30.9 mmHg (32.0-45.0); ABG PH (T) 7.458 (7.350-7.450); ABG PO2 (T) 58.7 mmHg (83-108); FCOHb 0.3 % (0.5-1.5); FLOW 5 L/min; FMetHb 0.3 % (0.3-1.12); FO2Hb 90.3 % (94-100); PATIENT TEMPERATURE 36.8; RESPIRATORY RATE (OBSERVED) 16 b/min; TOTAL HEMOGLOBIN 8.8 G/dl (12.0-16.0)
[2017-06-10 03:17] LABS: ALBUMIN 3.1 G/DL (3.4-5.0); ANION GAP 10 (8-16); BLOOD UREA NITROGEN 36 MG/DL (7-18); CALCIUM 8.4 MG/DL (8.5-10.1); CHLORIDE 113 MMOL/L (99-107); GLUCOSE 157 MG/DL (70-104); MAGNESIUM 2.3 MG/DL (1.5-2.4); PHOSPHORUS 2.9 MG/DL (2.3-4.5); POTASSIUM 4.1 MMOL/L (3.5-5.1); SODIUM 147 MMOL/L (135-145); eGFR 56 ML/MIN
[2017-06-10] MEDS: HYDROcodone/acetaminophen 10/325mg tab PO PRN (05:40)
[2017-06-10] MEDS: insulin Lispro (HumaLOG) vial - multi-dose SQ SCH ×2 (09:00→13:00)
[2017-06-10] MEDS: methylPREDNISolone sod succ 125mg/2ml vial IV SCH ×2 (09:36→15:50)
[2017-06-10] MEDS: mupirocin 2% ointment 22GM NS SCH (09:36)
[2017-06-10] MEDS: tacrolimus anhydrous 1mg capsule PO SCH ×2 (09:37→20:08)
[2017-06-10] MEDS: levoTHYROXINE 125mcg tablet PO SCH (09:37)
[2017-06-10] MEDS: FLUoxetine 20mg capsule PO SCH (09:37)
[2017-06-10] MEDS: mycophenolate mofetil 250mg capsule PO SCH ×2 (09:37→20:07)
[2017-06-10] MEDS: atorvastatin 20mg tablet PO SCH (09:38)
[2017-06-10] MEDS: pantoprazole 40mg Tablet.DR PO SCH (09:38)
[2017-06-10] MEDS: vitamin D (cholecalciferol) 1,000 unit tablet PO SCH (09:38)
[2017-06-10] MEDS: metoprolol tartrate 12.5mg (1/2 tablet) PO SCH (09:38)
[2017-06-10] MEDS: aspirin 325mg tablet, delayed-release (Ecotrin) PO SCH (09:38)
[2017-06-10] MEDS: docusate sod 100mg capsule PO SCH ×2 (09:38→20:00)
[2017-06-10] MEDS: cefazolin 1gm/NS 100mL 100 ML IV SCH (10:41)
[2017-06-10] MEDS ORDERED: metoprolol tartrate 12.5mg (1/2 tablet) PO ONE (13:35)
[2017-06-10] MEDS ORDERED: insulin Lispro (HumaLOG) vial - multi-dose SQ SCH (13:40)
[2017-06-10] MEDS ORDERED: dextrose ORAL solution 15 GM/59 ML bottle PO PRN ×2 (13:40)
[2017-06-10] MEDS ORDERED: glucagon, human recombinant 1mg kit SUBCUT PRN (13:40)
[2017-06-10] MEDS ORDERED: dextrose 50%-water 50ml dispensing syringe IV PRN ×2 (13:40)
[2017-06-10] MEDS ORDERED: cefazolin 1gm/NS 100mL 100 ML IV ONE ×2 (15:41→16:00)
[2017-06-10] MEDS: sodium chloride 0.45% 1,000 ML IV SCH (16:16)
[2017-06-10] MEDS: lactobacillus rhamnosus 10,000 MMU CELLS/CAPSULE PO SCH (17:30)
[2017-06-10] MEDS: DOBUTamine-DoBUTrex 500mg/D5W 250 ML IV SCH (20:05)
[2017-06-10] MEDS: metoprolol tartrate 50mg tablet PO SCH (20:08)
[2017-06-10] MEDS ORDERED: insulin glargine (Lantus) pen - multi-dose SQ SCH (21:00)
[2017-06-10 22:04] LABS: BASOPHILS % (AUTO) 0 % (0-1); EOSINOPHILS % (AUTO) 0 % (0-6); HEMATOCRIT 25.9 % (35.0-45.0); HEMOGLOBIN 8.8 g/dl (12.0-16.0); LYMPHOCYTES # (AUTO) 0.5 X10'3 (1.1-4.8); LYMPHOCYTES % (AUTO) 3.6 % (21-51); MEAN CORPUSCULAR HEMOGLOBIN 30.4 PG (27.0-31.0); MEAN CORPUSCULAR HGB CONC 33.8 % (33.0-36.5); MEAN CORPUSCULAR VOLUME 89.9 FL (78-98); MONOCYTES # (AUTO) 0.7 X10'3 (0-0.9); MONOCYTES % (AUTO) 4.5 % (2-12); NEUTROPHILS # (AUTO) 13.4 X10'3 (1.8-7.7); NEUTROPHILS % (AUTO) 91.9 % (42-75); PLATELET COUNT 120 X10'3 (140-440); RED BLOOD COUNT 2.88 X10'6 (4.20-5.60); RED CELL DISTRIBUTION WIDTH 16.3 % (11.5-14.5); WHITE BLOOD COUNT 14.6 X10'3 (4.5-11.0)
[2017-06-10 22:28] LABS: ALANINE AMINOTRANSFERASE 20 U/L (12-78); ALBUMIN 3.2 G/DL (3.4-5.0); ALBUMIN/GLOBULIN RATIO 1.1 (1.1-1.5); ALKALINE PHOSPHATASE 61 IU/L (46-116); ANION GAP 10 (8-16); ASPARTATE AMINO TRANSFERASE 32 U/L (10-37); BILIRUBIN,TOTAL 0.9 MG/DL (0.1-1.0); BLOOD UREA NITROGEN 38 MG/DL (7-18); CALCIUM 8.8 MG/DL (8.5-10.1); CHLORIDE 113 MMOL/L (99-107); GLUCOSE 144 MG/DL (70-104); MAGNESIUM 2.3 MG/DL (1.5-2.4); PHOSPHORUS 2.4 MG/DL (2.3-4.5); POTASSIUM 4.9 MMOL/L (3.5-5.1); SODIUM 146 MMOL/L (135-145); TOTAL CARBON DIOXIDE 22.9 MMOL/L (24-32); TOTAL PROTEIN 6.2 G/DL (6.4-8.2); eGFR 56 ML/MIN
[2017-06-11] VITALS (24 sets, daily range): BP systolic 104–166; BP diastolic 60–98
[2017-06-11] MEDS: methylPREDNISolone sod succ 125mg/2ml vial IV SCH ×3 (00:47→16:25)
[2017-06-11 03:59] LABS: BASOPHILS % (AUTO) 0 % (0-1); EOSINOPHILS # (AUTO) 0.2 X10'3 (0-0.9); EOSINOPHILS % (AUTO) 1.3 % (0-6); HEMATOCRIT 26.5 % (35.0-45.0); LYMPHOCYTES # (AUTO) 0.6 X10'3 (1.1-4.8); LYMPHOCYTES % (AUTO) 3.9 % (21-51); MEAN CORPUSCULAR HEMOGLOBIN 30.3 PG (27.0-31.0); MEAN CORPUSCULAR HGB CONC 33.9 % (33.0-36.5); MEAN CORPUSCULAR VOLUME 89.4 FL (78-98); MEAN PLATELET VOLUME 8.8 FL (7.4-10.4); MONOCYTES # (AUTO) 0.7 X10'3 (0-0.9); MONOCYTES % (AUTO) 4.9 % (2-12); NEUTROPHILS # (AUTO) 13.2 X10'3 (1.8-7.7); NEUTROPHILS % (AUTO) 89.9 % (42-75); PLATELET COUNT 116 X10'3 (140-440); RED BLOOD COUNT 2.96 X10'6 (4.20-5.60); RED CELL DISTRIBUTION WIDTH 15.4 % (11.5-14.5); WHITE BLOOD COUNT 14.6 X10'3 (4.5-11.0)
[2017-06-11 04:15] LABS: ANION GAP 9 (8-16); BLOOD UREA NITROGEN 44 MG/DL (7-18); CALCIUM 8.6 MG/DL (8.5-10.1); CHLORIDE 113 MMOL/L (99-107); GLUCOSE 145 MG/DL (70-104); MAGNESIUM 2.4 MG/DL (1.5-2.4); PHOSPHORUS 2.9 MG/DL (2.3-4.5); SODIUM 147 MMOL/L (135-145); eGFR 56 ML/MIN
[2017-06-11] MEDS: docusate sod 100mg capsule PO SCH ×2 (08:41→20:13)
[2017-06-11] MEDS: FLUoxetine 20mg capsule PO SCH (08:42)
[2017-06-11] MEDS: aspirin 325mg tablet, delayed-release (Ecotrin) PO SCH (08:42)
[2017-06-11] MEDS: tacrolimus anhydrous 1mg capsule PO SCH ×2 (08:42→20:13)
[2017-06-11] MEDS: vitamin D (cholecalciferol) 1,000 unit tablet PO SCH (08:42)
[2017-06-11] MEDS: levoTHYROXINE 125mcg tablet PO SCH (08:42)
[2017-06-11] MEDS: pantoprazole 40mg Tablet.DR PO SCH (08:42)
[2017-06-11] MEDS: lactobacillus rhamnosus 10,000 MMU CELLS/CAPSULE PO SCH ×2 (08:42→17:30)
[2017-06-11] MEDS: atorvastatin 20mg tablet PO SCH (08:42)
[2017-06-11] MEDS: metoprolol tartrate 50mg tablet PO SCH ×2 (08:42→20:13)
[2017-06-11] MEDS: mycophenolate mofetil 250mg capsule PO SCH ×2 (08:42→20:13)
[2017-06-12] VITALS (25 sets, daily range): BP systolic 93–152; BP diastolic 45–83
[2017-06-12] MEDS: HYDROcodone/acetaminophen 10/325mg tab PO PRN (00:50)
[2017-06-12] MEDS: methylPREDNISolone sod succ 125mg/2ml vial IV SCH ×3 (00:50→17:47)
[2017-06-12 03:15] LABS: BASOPHILS % (AUTO) 0.2 % (0-1); EOSINOPHILS # (AUTO) 0.1 X10'3 (0-0.9); EOSINOPHILS % (AUTO) 0.6 % (0-6); HEMATOCRIT 25.2 % (35.0-45.0); HEMOGLOBIN 8.7 g/dl (12.0-16.0); LYMPHOCYTES # (AUTO) 0.6 X10'3 (1.1-4.8); LYMPHOCYTES % (AUTO) 4.3 % (21-51); MEAN CORPUSCULAR HEMOGLOBIN 30.9 PG (27.0-31.0); MEAN CORPUSCULAR HGB CONC 34.3 % (33.0-36.5); MEAN CORPUSCULAR VOLUME 89.8 FL (78-98); MEAN PLATELET VOLUME 8.9 FL (7.4-10.4); MONOCYTES % (AUTO) 6.6 % (2-12); NEUTROPHILS # (AUTO) 13.3 X10'3 (1.8-7.7); NEUTROPHILS % (AUTO) 88.3 % (42-75); PLATELET COUNT 119 X10'3 (140-440); RED BLOOD COUNT 2.81 X10'6 (4.20-5.60); RED CELL DISTRIBUTION WIDTH 15.6 % (11.5-14.5); WHITE BLOOD COUNT 15.1 X10'3 (4.5-11.0)
[2017-06-12 04:05] LABS: ALBUMIN 2.8 G/DL (3.4-5.0); ANION GAP 8 (8-16); BLOOD UREA NITROGEN 60 MG/DL (7-18); CALCIUM 8.1 MG/DL (8.5-10.1); CHLORIDE 110 MMOL/L (99-107); GLUCOSE 131 MG/DL (70-104); MAGNESIUM 2.2 MG/DL (1.5-2.4); PHOSPHORUS 2.4 MG/DL (2.3-4.5); POTASSIUM 4.8 MMOL/L (3.5-5.1); SODIUM 142 MMOL/L (135-145); TOTAL CARBON DIOXIDE 24.5 MMOL/L (24-32); eGFR 46 ML/MIN
[2017-06-12] MEDS: metoprolol tartrate 50mg tablet PO SCH ×3 (08:00→19:41)
[2017-06-12] MEDS: vitamin D (cholecalciferol) 1,000 unit tablet PO SCH (08:38)
[2017-06-12] MEDS: aspirin 325mg tablet, delayed-release (Ecotrin) PO SCH (08:38)
[2017-06-12] MEDS: pantoprazole 40mg Tablet.DR PO SCH (08:38)
[2017-06-12] MEDS: levoTHYROXINE 125mcg tablet PO SCH (08:38)
[2017-06-12] MEDS: docusate sod 100mg capsule PO SCH ×2 (08:38→19:40)
[2017-06-12] MEDS: FLUoxetine 20mg capsule PO SCH (08:38)
[2017-06-12] MEDS: tacrolimus anhydrous 1mg capsule PO SCH ×2 (08:38→19:40)
[2017-06-12] MEDS: mycophenolate mofetil 250mg capsule PO SCH ×2 (08:39→19:40)
[2017-06-12] MEDS: atorvastatin 20mg tablet PO SCH (08:39)
[2017-06-12] MEDS: cloNIDine 0.1 mg tablet PO SCH ×3 (09:40→21:00)
[2017-06-12] MEDS: normal saline 1000ml 1,000 ML IV SCH (11:15)
[2017-06-12] MEDS: sodium chloride 0.45% 1,000 ML IV SCH (16:16)
[2017-06-13] VITALS (23 sets, daily range): BP systolic 96–156; BP diastolic 52–87
[2017-06-13] MEDS: methylPREDNISolone sod succ 125mg/2ml vial IV SCH ×4 (00:24→23:44)
[2017-06-13] MEDS: normal saline 1000ml 1,000 ML IV SCH ×3 (00:35→23:50)
[2017-06-13] MEDS: HYDROcodone/acetaminophen 10/325mg tab PO PRN ×2 (02:58→16:01)
[2017-06-13 06:32] LABS: MAGNESIUM 2.1 MG/DL (1.5-2.4); PHOSPHORUS 2.2 MG/DL (2.3-4.5); POTASSIUM 4.8 MMOL/L (3.5-5.1)
[2017-06-13 07:21] LABS: ALBUMIN 2.8 G/DL (3.4-5.0); BLOOD UREA NITROGEN 50 MG/DL (7-18); CALCIUM 8.6 MG/DL (8.5-10.1); GLUCOSE 130 MG/DL (70-104); TOTAL CARBON DIOXIDE 21.6 MMOL/L (24-32); eGFR 56 ML/MIN
[2017-06-13 07:22] LABS: CHLORIDE 109 MMOL/L (99-107); SODIUM 137 MMOL/L (135-145)
[2017-06-13 07:30] LABS: ANION GAP 6 (8-16)
[2017-06-13] MEDS: pantoprazole 40mg Tablet.DR PO SCH (07:57)
[2017-06-13] MEDS: mycophenolate mofetil 250mg capsule PO SCH ×2 (07:58→20:46)
[2017-06-13] MEDS: atorvastatin 20mg tablet PO SCH (07:58)
[2017-06-13] MEDS: docusate sod 100mg capsule PO SCH ×2 (07:58→20:46)
[2017-06-13] MEDS: vitamin D (cholecalciferol) 1,000 unit tablet PO SCH (07:58)
[2017-06-13] MEDS: aspirin 325mg tablet, delayed-release (Ecotrin) PO SCH (07:58)
[2017-06-13] MEDS: tacrolimus anhydrous 1mg capsule PO SCH ×2 (07:58→20:46)
[2017-06-13] MEDS: metoprolol tartrate 50mg tablet PO SCH ×2 (07:59→20:00)
[2017-06-13] MEDS: levoTHYROXINE 125mcg tablet PO SCH (07:59)
[2017-06-13] MEDS: FLUoxetine 20mg capsule PO SCH (07:59)
[2017-06-13] MEDS: cloNIDine 0.1 mg tablet PO SCH ×3 (08:00→20:46)
[2017-06-13] MEDS: Neutra Phos packet PO PRN ×2 (08:14→12:34)
[2017-06-13] MEDS ORDERED: magnesium citrate 296ml oral solution PO ONE (12:00)
[2017-06-13] MEDS: Protein Smoothie (high protein) 240ml (8oz) cup PO SCH ×2 (13:00→19:00)
[2017-06-14] VITALS (24 sets, daily range): BP systolic 76–156; BP diastolic 44–91
[2017-06-14] MEDS: HYDROcodone/acetaminophen 10/325mg tab PO PRN ×3 (01:37→23:28)
[2017-06-14 06:13] LABS: MAGNESIUM 1.7 MG/DL (1.5-2.4); POTASSIUM 4.8 MMOL/L (3.5-5.1)
[2017-06-14] MEDS: vitamin D (cholecalciferol) 1,000 unit tablet PO SCH (07:47)
[2017-06-14] MEDS: FLUoxetine 20mg capsule PO SCH (07:48)
[2017-06-14] MEDS: aspirin 325mg tablet, delayed-release (Ecotrin) PO SCH (07:48)
[2017-06-14] MEDS: cloNIDine 0.1 mg tablet PO SCH ×2 (07:48→13:00)
[2017-06-14] MEDS: docusate sod 100mg capsule PO SCH ×2 (07:48→19:54)
[2017-06-14] MEDS: mycophenolate mofetil 250mg capsule PO SCH ×2 (07:48→19:54)
[2017-06-14] MEDS: tacrolimus anhydrous 1mg capsule PO SCH ×2 (07:48→19:54)
[2017-06-14] MEDS: methylPREDNISolone sod succ 125mg/2ml vial IV SCH ×3 (07:48→23:27)
[2017-06-14] MEDS: multivitamins, therapeutics tablet PO SCH (07:48)
[2017-06-14] MEDS: pantoprazole 40mg Tablet.DR PO SCH (07:48)
[2017-06-14] MEDS: metoprolol tartrate 25mg tablet PO SCH ×2 (07:48→19:55)
[2017-06-14] MEDS: levoTHYROXINE 125mcg tablet PO SCH (07:48)
[2017-06-14] MEDS: atorvastatin 20mg tablet PO SCH (07:48)
[2017-06-14] MEDS: Neutra Phos packet PO PRN (07:52)
[2017-06-14] MEDS: Protein Smoothie (high protein) 240ml (8oz) cup PO SCH ×3 (08:00→18:00)
[2017-06-14] MEDS: magnesium 2GM in 50ml NS 50 ML IV PRN (08:01)
[2017-06-14] MEDS ORDERED: magnesium Cl slow-release 64mg tablet PO PRN (08:25)
[2017-06-14] MEDS ORDERED: potassium Cl 40MEQ/NS 500ml 500 ML IV PRN ×2 (08:25)
[2017-06-14] MEDS ORDERED: magnesium 4gm in 100ml NS 100 ML IV PRN (08:25)
[2017-06-14] MEDS ORDERED: magnesium 2GM in 50ml NS 50 ML IV PRN (08:25)
[2017-06-14] MEDS ORDERED: potassium Cl 20 mEq SR tablet PO PRN ×2 (08:25)
[2017-06-14 12:20] LABS: ALBUMIN 2.5 G/DL (3.4-5.0); ANION GAP 4 (8-16); BLOOD UREA NITROGEN 29 MG/DL (7-18); BUN/CREATININE RATIO 36.3 (6.6-38.0); CALCIUM 8.4 MG/DL (8.5-10.1); CHLORIDE 108 MMOL/L (99-107); GLUCOSE 124 MG/DL (70-104); SODIUM 137 MMOL/L (135-145); TOTAL CARBON DIOXIDE 25.4 MMOL/L (24-32); eGFR 73 ML/MIN
[2017-06-14 13:21] LABS: % IRON SATURATION 16 % (11-46); IRON 40 UG/DL (49-151); TOTAL IRON BINDING CAPACITY 249 UG/DL (259-388)
[2017-06-14 13:25] LABS: FERRITIN 303 NG/ML (8-252)
[2017-06-14 15:17] LABS: BASOPHILS % (AUTO) 0 % (0-1); EOSINOPHILS # (AUTO) 0.3 X10'3 (0-0.9); EOSINOPHILS % (AUTO) 1.6 % (0-6); HEMATOCRIT 28.6 % (35.0-45.0); HEMOGLOBIN 9.7 g/dl (12.0-16.0); LYMPHOCYTES # (AUTO) 0.8 X10'3 (1.1-4.8); LYMPHOCYTES % (AUTO) 5.1 % (21-51); MEAN CORPUSCULAR HEMOGLOBIN 30.8 PG (27.0-31.0); MEAN CORPUSCULAR HGB CONC 33.8 % (33.0-36.5); MEAN CORPUSCULAR VOLUME 91.2 FL (78-98); MEAN PLATELET VOLUME 8.7 FL (7.4-10.4); MONOCYTES % (AUTO) 5.9 % (2-12); NEUTROPHILS # (AUTO) 14.2 X10'3 (1.8-7.7); NEUTROPHILS % (AUTO) 87.4 % (42-75); PLATELET COUNT 146 X10'3 (140-440); RED BLOOD COUNT 3.14 X10'6 (4.20-5.60); RED CELL DISTRIBUTION WIDTH 15.2 % (11.5-14.5); WHITE BLOOD COUNT 16.3 X10'3 (4.5-11.0)
[2017-06-14] MEDS: potassium Cl 20 mEq SR tablet PO SCH (19:39)
[2017-06-14] MEDS: magnesium Cl slow-release 64mg tablet PO SCH (19:54)
[2017-06-15] VITALS (13 sets, daily range): BP systolic 103–155; BP diastolic 60–86
[2017-06-15 05:25] LABS: BASOPHILS % (AUTO) 0 % (0-1); EOSINOPHILS # (AUTO) 0.2 X10'3 (0-0.9); EOSINOPHILS % (AUTO) 1.3 % (0-6); HEMATOCRIT 28.5 % (35.0-45.0); HEMOGLOBIN 9.8 g/dl (12.0-16.0); LYMPHOCYTES # (AUTO) 0.9 X10'3 (1.1-4.8); LYMPHOCYTES % (AUTO) 5.2 % (21-51); MEAN CORPUSCULAR HGB CONC 34.4 % (33.0-36.5); MEAN PLATELET VOLUME 8.9 FL (7.4-10.4); MONOCYTES # (AUTO) 1.1 X10'3 (0-0.9); MONOCYTES % (AUTO) 6.6 % (2-12); NEUTROPHILS # (AUTO) 14.8 X10'3 (1.8-7.7); NEUTROPHILS % (AUTO) 86.9 % (42-75); PLATELET COUNT 169 X10'3 (140-440); RED BLOOD COUNT 3.16 X10'6 (4.20-5.60)
[2017-06-15 05:50] LABS: ALBUMIN 2.6 G/DL (3.4-5.0); ANION GAP 5 (8-16); BLOOD UREA NITROGEN 25 MG/DL (7-18); BUN/CREATININE RATIO 31.3 (6.6-38.0); CALCIUM 8.8 MG/DL (8.5-10.1); CHLORIDE 106 MMOL/L (99-107); GLUCOSE 130 MG/DL (70-104); MAGNESIUM 2.2 MG/DL (1.5-2.4); POTASSIUM 4.7 MMOL/L (3.5-5.1); SODIUM 137 MMOL/L (135-145); TOTAL CARBON DIOXIDE 25.9 MMOL/L (24-32); eGFR 73 ML/MIN
[2017-06-15] MEDS: aspirin 325mg tablet, delayed-release (Ecotrin) PO SCH (06:39)
[2017-06-15] MEDS: atorvastatin 20mg tablet PO SCH (06:39)
[2017-06-15] MEDS: FLUoxetine 20mg capsule PO SCH (06:39)
[2017-06-15] MEDS: pantoprazole 40mg Tablet.DR PO SCH (06:39)
[2017-06-15] MEDS: HYDROcodone/acetaminophen 10/325mg tab PO PRN (06:40)
[2017-06-15] MEDS: levoTHYROXINE 125mcg tablet PO SCH (06:40)
[2017-06-15] MEDS: multivitamins, therapeutics tablet PO SCH (06:40)
[2017-06-15] MEDS: tacrolimus anhydrous 1mg capsule PO SCH (06:41)
[2017-06-15] MEDS: mycophenolate mofetil 250mg capsule PO SCH (06:41)
[2017-06-15] MEDS: methylPREDNISolone sod succ 125mg/2ml vial IV SCH (06:42)
[2017-06-15] MEDS: docusate sod 100mg capsule PO SCH (06:42)
[2017-06-15] MEDS: metoprolol tartrate 25mg tablet PO SCH (06:42)
[2017-06-15] MEDS: potassium Cl 20 mEq SR tablet PO SCH (07:19)
[2017-06-15] MEDS: magnesium Cl slow-release 64mg tablet PO SCH (07:19)
[2017-06-15] MEDS ORDERED: vitamin D (cholecalciferol) 1,000 unit tablet PO SCH (08:00)
[2017-06-15] MEDS ORDERED: K and/or MAG REPLACEMENT MC SCH (08:00)
[2017-06-15] MEDS: Protein Smoothie (high protein) 240ml (8oz) cup PO SCH (08:28)
[2017-06-16] MEDS ORDERED: prednisone 10mg tablet PO SCH (08:30)
[2017-06-17] MEDS ORDERED: ATORVASTATIN 80 MG TABLET (01:18)
[2017-06-17] MEDS ORDERED: PREDNISONE 5 MG TABLET (01:18)
[2017-06-17] MEDS ORDERED: TACROLIMUS 1 MG CAPSULE (01:18)
[2017-06-17] MEDS ORDERED: NEXIUM 20 MG (01:18)
[2017-06-17] MEDS ORDERED: MYCOPHENOLATE 500 MG TABLET (01:18)
[2017-06-17] MEDS ORDERED: LEVOTHYROXINE 125 MCG TABLET (01:18)
[2017-06-17] MEDS ORDERED: OMEPRAZOLE DR 20 MG CAPSULE PO (01:18)
[2017-06-17] MEDS ORDERED: TOPROL 50 MG (01:18)
[2017-06-17] MEDS ORDERED: ALENDRONATE SODIUM 70 MG TAB (01:18)
[2017-06-17] MEDS ORDERED: LISINOPRIL 2.5 MG TABLET (01:18)
[2017-06-17] MEDS ORDERED: FLUOXETINE HCL 40 MG CAPSULE (01:18)
[2017-06-17] MEDS ORDERED: ASPI-107 (01:18)
[2017-06-17] MEDS ORDERED: METO50TA16 PO (02:00)
[2017-06-17] MEDS ORDERED: PRED10TA PO (02:00)
[2017-06-17] MEDS ORDERED: ASPI325T55 PO (02:09)
[2017-06-17] MEDS ORDERED: CHOL3000 PO (02:09)
[2017-06-17] MEDS ORDERED: MULT-38 PO (02:15)
[2017-06-17] MEDS ORDERED: MAGN400O6 PO (02:24)
[2017-06-17] MEDS ORDERED: HYDR-565 PO (02:24)
[2017-06-17] MEDS ORDERED: LACT414L5 (02:24)
[2017-06-17] MEDS ORDERED: DOCU-28 PO (02:24)
[2017-06-17] MEDS ORDERED: NYST1000 PO (16:18)
== END 2017-06-15 13:41 | DRG 219 ==
LOC: PAS IN 05:35 → EDSTATUS 07:30 → CICU 2S 08:44
PROVIDERS: ADMIT Thoracic Surgery (Cardiothoracic Vascular Surgery); ATTEND Thoracic Surgery (Cardiothoracic Vascular Surgery)
PROC: 02RF08Z Replacement of Aortic Valve with Zooplastic Tissue, Open Approach (ICD-10-PCS; 2017-06-08)
PROC: B246ZZ4 Ultrasonography of Right and Left Heart, Transesophageal (ICD-10-PCS; 2017-06-08)
PROC: 02U Heart and Great Vessels, Supplement (ICD-10-PCS; 2017-06-08)
PROC: 5A1221Z Performance of Cardiac Output, Continuous (ICD-10-PCS; 2017-06-08)
PROC: 30233L1 Transfusion of Nonautologous Fresh Plasma into Peripheral Vein, Percutaneous Approach (ICD-10-PCS; 2017-06-08)
PROC: 30233N1 Transfusion of Nonautologous Red Blood Cells into Peripheral Vein, Percutaneous Approach (ICD-10-PCS; 2017-06-08)
PROC: 30233R1 Transfusion of Nonautologous Platelets into Peripheral Vein, Percutaneous Approach (ICD-10-PCS; 2017-06-08)
PROC: 30233M1 Transfusion of Nonautologous Plasma Cryoprecipitate into Peripheral Vein, Percutaneous Approach (ICD-10-PCS; 2017-06-08)
PROC: 30233K1 Transfusion of Nonautologous Frozen Plasma into Peripheral Vein, Percutaneous Approach (ICD-10-PCS; 2017-06-08)
PROC: 02HV33Z Insertion of Infusion Device into Superior Vena Cava, Percutaneous Approach (ICD-10-PCS; 2017-06-08)
PROC: 02HQ32Z Insertion of Monitoring Device into Right Pulmonary Artery, Percutaneous Approach (ICD-10-PCS; 2017-06-08)
PROC: 4A133B3 Monitoring of Arterial Pressure, Pulmonary, Percutaneous Approach (ICD-10-PCS; 2017-06-08)
PROC: 4A1239Z Monitoring of Cardiac Output, Percutaneous Approach (ICD-10-PCS; 2017-06-08)
PROC: 02RG08Z Replacement of Mitral Valve with Zooplastic Tissue, Open Approach (ICD-10-PCS; principal; 2017-06-08 07:15)
DX: I25.3 Aneurysm of heart (principal); N18.6 End stage renal disease; J96.00 Acute respiratory failure, unspecified whether with hypoxia or hypercapnia; I13.2 Hypertensive heart and chronic kidney disease with heart failure and with stage 5 chronic kidney disease, or end stage renal disease; G93.1 Anoxic brain damage, not elsewhere classified; I31.0 Chronic adhesive pericarditis; D68.9 Coagulation defect, unspecified; R13.10 Dysphagia, unspecified; Z86.74 Personal history of sudden cardiac arrest; I50.22 Chronic systolic (congestive) heart failure; Z94.0 Kidney transplant status; I34.0 Nonrheumatic mitral (valve) insufficiency; I35.1 Nonrheumatic aortic (valve) insufficiency; D50.0 Iron deficiency anemia secondary to blood loss (chronic); E03.9 Hypothyroidism, unspecified; E78.00 Pure hypercholesterolemia, unspecified; G25.81 Restless legs syndrome; I25.10 Atherosclerotic heart disease of native coronary artery without angina pectoris; J44.9 Chronic obstructive pulmonary disease, unspecified; I25.2 Old myocardial infarction; Z98.61 Coronary angioplasty status; Z95.1 Presence of aortocoronary bypass graft; Z88.0 Allergy status to penicillin; Z79.899 Other long term (current) drug therapy; Z79.82 Long term (current) use of aspirin; Z87.891 Personal history of nicotine dependence; Z83.3 Family history of diabetes mellitus
CPT/HCPCS: 0232T; 93312; 93325; 36415; 36600; 71045; 71046; 80048; 80053; 80069; 80197; 81001; 82330; 82435; 82728; 82803; 82947; 82948; 83036; 83540; 83550; 83735; 84100; 84132; 84295; 85018; 85025; 85347; 85384; 85610; 85730; 86885; 86900; 86901; 86920; 87070; 88300; 88304; 93005; 93880; 93970; 94002; 94003; 94010; 94760; 97110; 97116; 97162; 97530; A6213; A6257; A6258; A6402; A6449; A7000; A7048; C1751; J0171; J0690; J1250; J1644; J1720; J1815; J2001; J2060; J2150; J2270; J2370; J2405; J2704; J2930; J3370; J3475; J3480; J3490; J7030; J7120; J7507; J7512; J7517; P9012; P9016; P9035; P9045; P9047; P9059

== ENCOUNTER 2017-06-22 21:00 | Emergency (ER) | payer MEDICARE, OTHER ==
[~2017-06-22] VITALS: Ht 165.1 cm; Wt 54.5 kg
[~2017-06-22 21:00] MED LIST changes: +ASPI325T55 PO; -ASPI81TA52 PO; -CHOL200016 PO; +CHOL3000 PO; +DOCU-28 PO; -DOCUMENT DATE & TIME OF BETA-BLOCKER PO ONE; +LACT414L5; -LORazepam 2 mg/ml vial IV ONE; +MAGN400O6 PO; +METO50TA16 PO; -METO50TA7 PO; +MULT-38 PO; +NYST1000 PO; +PRED10TA PO; -PRED5TAB PO; -VANCOMYCIN INJ 1000 MG in NORMAL SALINE 250ml IV.SOLN IV ONE; -albuterol 2.5 MG/3 ML nebule NEB ONE; -ceFAZolin 2gm in dextrose, iso 100 ML IV ONE; -dextrose 50%-water 50ml dispensing syringe IV PRN; -famotidine 20mg tablet PO ONE; -hydrocortisone sod succ/PF 100mg/2ml inj. IV ONE; -ringers solution, lacted 1,000 ML IV SCH
[2017-06-22 21:47] LABS: INR 1.1 INR; PARTIAL THROMBOPLASTIN TIME 27 SECONDS (22-32); PROTHROMBIN TIME 11.4 SECONDS (9.0-12.0)
[2017-06-22 21:50] LABS: BASOPHILS # (AUTO) 0.1 X10'3 (0-0.2); BASOPHILS % (AUTO) 0.4 % (0-1); EOSINOPHILS # (AUTO) 0.4 X10'3 (0-0.9); EOSINOPHILS % (AUTO) 2.9 % (0-6); HEMATOCRIT 28.9 % (35.0-45.0); HEMOGLOBIN 9.6 g/dl (12.0-16.0); LYMPHOCYTES # (AUTO) 1.3 X10'3 (1.1-4.8); MEAN CORPUSCULAR HEMOGLOBIN 30.2 PG (27.0-31.0); MEAN CORPUSCULAR HGB CONC 33.1 % (33.0-36.5); MEAN CORPUSCULAR VOLUME 91.3 FL (78-98); MEAN PLATELET VOLUME 7.6 FL (7.4-10.4); MONOCYTES # (AUTO) 1.2 X10'3 (0-0.9); MONOCYTES % (AUTO) 8.1 % (2-12); NEUTROPHILS # (AUTO) 11.6 X10'3 (1.8-7.7); NEUTROPHILS % (AUTO) 79.6 % (42-75); PLATELET COUNT 321 X10'3 (140-440); RED BLOOD COUNT 3.16 X10'6 (4.20-5.60); RED CELL DISTRIBUTION WIDTH 16.2 % (11.5-14.5); WHITE BLOOD COUNT 14.6 X10'3 (4.5-11.0)
[2017-06-22 21:58] LABS: ALANINE AMINOTRANSFERASE 21 U/L (12-78); ALBUMIN 2.5 G/DL (3.4-5.0); ALBUMIN/GLOBULIN RATIO 0.7 (1.1-1.5); ALKALINE PHOSPHATASE 112 IU/L (46-116); ANION GAP 14 (8-16); ASPARTATE AMINO TRANSFERASE 20 U/L (10-37); BILIRUBIN,TOTAL 0.6 MG/DL (0.1-1.0); BLOOD UREA NITROGEN 24 MG/DL (7-18); BUN/CREATININE RATIO 27.3 (6.6-38.0); CALCIUM 9.5 MG/DL (8.5-10.1); CHLORIDE 105 MMOL/L (99-107); CREATININE 0.88 MG/DL (0.40-0.90); GLUCOSE 113 MG/DL (70-104); POTASSIUM 3.7 MMOL/L (3.5-5.1); SODIUM 141 MMOL/L (135-145); TOTAL PROTEIN 6.3 G/DL (6.4-8.2); eGFR 65 ML/MIN
[2017-06-22 21:59] LABS: MAGNESIUM 0.9 MG/DL (1.5-2.4)
[2017-06-22] MEDS ORDERED: magnesium 2GM in 50ml NS 50 ML IV ONE (22:20)
[2017-06-22] MEDS ORDERED: furosemide 40mg/4ml inj IV ONE (22:25)
[2017-06-22] MEDS ORDERED: levoFLOXACIN 500mg tablet PO ONE (22:25)
[2017-06-23] MEDS ORDERED: FURO-150 PO (01:02)
[2017-06-23] MEDS ORDERED: LEVO500T2 PO (01:02)
[2017-06-23] MEDS ORDERED: MAGN400C PO (01:02)
[2017-06-23 01:27] VITALS: BP 91/54
== END 2017-06-23 01:28 | disposition home or self-care (01) ==
LOC: ER 21:00
DX: R06.00 Dyspnea, unspecified (principal); E83.42 Hypomagnesemia; I25.10 Atherosclerotic heart disease of native coronary artery without angina pectoris; J44.9 Chronic obstructive pulmonary disease, unspecified; F17.210 Nicotine dependence, cigarettes, uncomplicated; Z88.0 Allergy status to penicillin; Z99.81 Dependence on supplemental oxygen; Z79.899 Other long term (current) drug therapy
CPT/HCPCS: 36415; 71045; 80053; 83735; 83880; 84484; 85025; 85610; 85730; 93005; 96365; 96366; 96375; 99285; J1940; J3475

== ENCOUNTER 2017-06-27 13:18 | Inpatient (IN) | payer MEDICARE, OTHER ==
[~2017-06-27] VITALS: Ht 165.1 cm; Wt 51.3 kg
[~2017-06-27 13:18] MED LIST changes: +FURO-150 PO; +LEVO500T2 PO; +MAGN400C PO
[2017-06-27 14:02] LABS: BASOPHILS % (AUTO) 0.2 % (0-1); EOSINOPHILS # (AUTO) 0.3 X10'3 (0-0.9); EOSINOPHILS % (AUTO) 2.1 % (0-6); HEMATOCRIT 34.6 % (35.0-45.0); HEMOGLOBIN 11.7 g/dl (12.0-16.0); LYMPHOCYTES # (AUTO) 0.6 X10'3 (1.1-4.8); LYMPHOCYTES % (AUTO) 4.2 % (21-51); MEAN CORPUSCULAR HEMOGLOBIN 30.5 PG (27.0-31.0); MEAN CORPUSCULAR HGB CONC 33.8 % (33.0-36.5); MEAN CORPUSCULAR VOLUME 90.1 FL (78-98); MEAN PLATELET VOLUME 7.6 FL (7.4-10.4); MONOCYTES # (AUTO) 0.8 X10'3 (0-0.9); MONOCYTES % (AUTO) 5.3 % (2-12); NEUTROPHILS # (AUTO) 12.8 X10'3 (1.8-7.7); NEUTROPHILS % (AUTO) 88.2 % (42-75); PLATELET COUNT 329 X10'3 (140-440); RED BLOOD COUNT 3.84 X10'6 (4.20-5.60); RED CELL DISTRIBUTION WIDTH 16.5 % (11.5-14.5); WHITE BLOOD COUNT 14.5 X10'3 (4.5-11.0)
[2017-06-27 14:10] LABS: INR 1.1 INR; PARTIAL THROMBOPLASTIN TIME 29 SECONDS (22-32); PROTHROMBIN TIME 11.4 SECONDS (9.0-12.0)
[2017-06-27 14:21] LABS: ALANINE AMINOTRANSFERASE 20 U/L (12-78); ALBUMIN 2.7 G/DL (3.4-5.0); ALBUMIN/GLOBULIN RATIO 0.6 (1.1-1.5); ALKALINE PHOSPHATASE 135 IU/L (46-116); ANION GAP 11 (8-16); ASPARTATE AMINO TRANSFERASE 27 U/L (10-37); BILIRUBIN,TOTAL 0.8 MG/DL (0.1-1.0); BLOOD UREA NITROGEN 34 MG/DL (7-18); BUN/CREATININE RATIO 32.4 (6.6-38.0); CALCIUM 9.4 MG/DL (8.5-10.1); CHLORIDE 104 MMOL/L (99-107); CREATININE 1.05 MG/DL (0.40-0.90); GLUCOSE 133 MG/DL (70-104); SODIUM 136 MMOL/L (135-145); TOTAL CARBON DIOXIDE 21.2 MMOL/L (24-32); TOTAL PROTEIN 7.1 G/DL (6.4-8.2); eGFR 53 ML/MIN
[2017-06-27] MEDS ORDERED: furosemide 10 MG/1 ML 10ml inj IV ONE (14:55)
[2017-06-27] MEDS ORDERED: levoFLOXACIN-Levaquin 750MG/D5 150 ML IV ONE (14:55)
[2017-06-27 16:02] LABS: PLATELET ESTIMATE NORMAL
[2017-06-27 16:03] LABS: ACANTHOCYTES FEW; ANISOCYTOSIS 1+; BURR CELLS 1+; POIKILOCYTOSIS 1+; POLYCHROMASIA 1+; TEAR DROP CELLS FEW
[2017-06-27 16:04] LABS: SCHISTOCYTES FEW
[2017-06-27] MEDS ORDERED: non-formulary drug (Albuterol Sulfate Nebs* (Proventil Nebs*) 2.5 MG) IH PRN (17:20)
[2017-06-27] MEDS ORDERED: non-formulary drug (Alendronate Sodium* (Fosamax*) 1 TABLET) PO SCH (17:20)
[2017-06-27] MEDS ORDERED: HYDROmorphone inj. 0.5 MG/0.5 ML DISP.SYRIN IV PRN ×2 (17:25)
[2017-06-27] MEDS ORDERED: acetaminophen 325mg tablet PO PRN (17:25)
[2017-06-27] MEDS ORDERED: metoclopramide 5 mg/ml inj IV PRN (17:25)
[2017-06-27] MEDS ORDERED: ondansetron/PF 4mg/2ml inj IV PRN (17:25)
[2017-06-27] MEDS ORDERED: diphenhydrAMINE 25mg capsule PO PRN (17:25)
[2017-06-27] MEDS ORDERED: mag hydrox/Alum hydrox/simeth 30ml oral suspension PO PRN (17:25)
[2017-06-27] MEDS ORDERED: diphenhydrAMINE 50 mg/ml inj IV PRN (17:25)
[2017-06-27] MEDS ORDERED: magnesium hydroxide 30ml (MOM) UD suspension PO PRN (17:25)
[2017-06-27] MEDS ORDERED: HYDROcodone/acetaminophen 5mg/325mg tablet PO PRN (17:25)
[2017-06-27] MEDS ORDERED: morphine 5 MG/ML injection IV PRN ×2 (17:25)
[2017-06-27] MEDS ORDERED: bisacodyl 10mg suppository rectal RC PRN (17:25)
[2017-06-27] MEDS ORDERED: albuterol 2.5 MG/3 ML nebule NEB PRN (17:35)
[2017-06-27] MEDS ORDERED: PRED5TAB PO (18:20)
[2017-06-27] MEDS ORDERED: TICA90TA PO (18:20)
[2017-06-27] MEDS ORDERED: AMLO5TAB4 PO (18:20)
[2017-06-27] MEDS ORDERED: LISI-642 PO (18:20)
[2017-06-27] MEDS ORDERED: OMEP20TA23 PO (18:20)
[2017-06-27] MEDS ORDERED: ASPI-1264 PO (18:20)
[2017-06-27] MEDS ORDERED: DOXY100C2 PO (18:20)
[2017-06-27 18:40] LABS: MAGNESIUM 1.4 MG/DL (1.5-2.4); PHOSPHORUS 2.2 MG/DL (2.3-4.5)
[2017-06-27 19:18] VITALS: BP 96/55
[2017-06-27] MEDS: nystatin 500,000 unit/5ML UD oral suspension PO SCH (19:27)
[2017-06-27] MEDS: furosemide 10 MG/1 ML 10ml inj IV SCH (19:27)
[2017-06-27] MEDS: docusate sod 100mg capsule PO SCH ×2 (19:28→20:00)
[2017-06-27] MEDS: HYDROcodone/acetaminophen 10/325mg tab PO PRN (19:28)
[2017-06-27] MEDS ORDERED: methylPREDNISolone sod succ 125mg/2ml vial IV ONE (20:00)
[2017-06-27] MEDS ORDERED: MYCOPHENOLATE MOFETIL PO SCH (20:00)
[2017-06-27] MEDS: temazepam 15mg capsule PO PRN (21:34)
[2017-06-27] MEDS: tacrolimus anhydrous 1mg capsule PO SCH (21:34)
[2017-06-27] MEDS: mycophenolate mofetil 250mg capsule PO SCH (21:34)
[2017-06-27 23:00] VITALS: BP 103/61
[2017-06-28] VITALS (7 sets, daily range): BP systolic 84–148; BP diastolic 51–83
[2017-06-28] MEDS: nystatin 500,000 unit/5ML UD oral suspension PO SCH ×4 (01:26→19:34)
[2017-06-28 02:16] LABS: ALANINE AMINOTRANSFERASE 20 U/L (12-78); ALBUMIN 2.5 G/DL (3.4-5.0); ALBUMIN/GLOBULIN RATIO 0.6 (1.1-1.5); ALKALINE PHOSPHATASE 124 IU/L (46-116); ANION GAP 12 (8-16); ASPARTATE AMINO TRANSFERASE 24 U/L (10-37); BILIRUBIN,TOTAL 0.7 MG/DL (0.1-1.0); BLOOD UREA NITROGEN 36 MG/DL (7-18); CALCIUM 9.2 MG/DL (8.5-10.1); CHLORIDE 103 MMOL/L (99-107); CREATININE 1.16 MG/DL (0.40-0.90); GLUCOSE 125 MG/DL (70-104); POTASSIUM 4.4 MMOL/L (3.5-5.1); SODIUM 137 MMOL/L (135-145); TOTAL CARBON DIOXIDE 22.5 MMOL/L (24-32); TOTAL PROTEIN 6.8 G/DL (6.4-8.2); eGFR 47 ML/MIN
[2017-06-28 05:08] LABS: BASOPHILS % (AUTO) 0.1 % (0-1); EOSINOPHILS # (AUTO) 0.2 X10'3 (0-0.9); EOSINOPHILS % (AUTO) 1.5 % (0-6); HEMATOCRIT 31.6 % (35.0-45.0); HEMOGLOBIN 10.8 g/dl (12.0-16.0); LYMPHOCYTES # (AUTO) 0.4 X10'3 (1.1-4.8); LYMPHOCYTES % (AUTO) 3.6 % (21-51); MEAN CORPUSCULAR HEMOGLOBIN 30.9 PG (27.0-31.0); MEAN CORPUSCULAR HGB CONC 34.1 % (33.0-36.5); MEAN CORPUSCULAR VOLUME 90.7 FL (78-98); MEAN PLATELET VOLUME 7.6 FL (7.4-10.4); MONOCYTES # (AUTO) 0.3 X10'3 (0-0.9); MONOCYTES % (AUTO) 2.4 % (2-12); NEUTROPHILS # (AUTO) 9.7 X10'3 (1.8-7.7); NEUTROPHILS % (AUTO) 92.4 % (42-75); PLATELET COUNT 345 X10'3 (140-440); RED BLOOD COUNT 3.49 X10'6 (4.20-5.60); RED CELL DISTRIBUTION WIDTH 16.2 % (11.5-14.5); WHITE BLOOD COUNT 10.5 X10'3 (4.5-11.0)
[2017-06-28] MEDS: mycophenolate mofetil 250mg capsule PO SCH ×2 (07:19→19:35)
[2017-06-28] MEDS: atorvastatin 20mg tablet PO SCH (07:20)
[2017-06-28] MEDS: vitamin D (cholecalciferol) 1,000 unit tablet PO SCH (07:20)
[2017-06-28] MEDS: levoTHYROXINE 125mcg tablet PO SCH (07:21)
[2017-06-28] MEDS: tacrolimus anhydrous 1mg capsule PO SCH ×2 (07:21→19:35)
[2017-06-28] MEDS: docusate sod 100mg capsule PO SCH ×4 (07:21→20:00)
[2017-06-28] MEDS: furosemide 10 MG/1 ML 10ml inj IV SCH ×2 (07:26→19:34)
[2017-06-28] MEDS: levoFLOXACIN-Levaquin 750MG/D5 150 ML IV SCH (07:26)
[2017-06-28] MEDS ORDERED: CHOLECALCIFEROL PO SCH (08:00)
[2017-06-28] MEDS ORDERED: non-formulary drug (Atorvastatin Calcium* (Lipitor*) 1 TABLET) PO SCH (08:00)
[2017-06-28 08:48] LABS: MAGNESIUM 1.5 MG/DL (1.5-2.4); PHOSPHORUS 3.5 MG/DL (2.3-4.5)
[2017-06-28] MEDS ORDERED: iohexol 350MG/ML 100ml bottle IV ONE (10:32)
[2017-06-28] MEDS: albuterol 2.5 MG/3 ML nebule NEB SCH ×3 (12:55→19:47)
[2017-06-28] MEDS ORDERED: LIDOcaine 1%/PF (10mg/ml) 5ml vial ONE (15:06)
[2017-06-28] MEDS: HYDROcodone/acetaminophen 10/325mg tab PO PRN ×2 (15:32→19:35)
[2017-06-28] MEDS ORDERED: morphine 4 MG/ML inj SYRINge IV PRN ×2 (21:21)
[2017-06-28] MEDS: temazepam 15mg capsule PO PRN (21:28)
[2017-06-29] MEDS: nystatin 500,000 unit/5ML UD oral suspension PO SCH ×4 (02:00→20:00)
[2017-06-29] MEDS: HYDROcodone/acetaminophen 10/325mg tab PO PRN ×2 (02:56→16:13)
[2017-06-29 03:00] VITALS: BP 111/71
[2017-06-29] MEDS: albuterol 2.5 MG/3 ML nebule NEB SCH ×4 (03:42→20:09)
[2017-06-29 05:26] LABS: BASOPHILS % (AUTO) 0.4 % (0-1); EOSINOPHILS # (AUTO) 0.7 X10'3 (0-0.9); EOSINOPHILS % (AUTO) 7.4 % (0-6); HEMATOCRIT 29.4 % (35.0-45.0); LYMPHOCYTES # (AUTO) 1.4 X10'3 (1.1-4.8); LYMPHOCYTES % (AUTO) 15.7 % (21-51); MEAN CORPUSCULAR HEMOGLOBIN 30.8 PG (27.0-31.0); MEAN CORPUSCULAR VOLUME 90.5 FL (78-98); MEAN PLATELET VOLUME 7.6 FL (7.4-10.4); MONOCYTES # (AUTO) 0.8 X10'3 (0-0.9); NEUTROPHILS # (AUTO) 6.1 X10'3 (1.8-7.7); NEUTROPHILS % (AUTO) 67.5 % (42-75); PLATELET COUNT 320 X10'3 (140-440); RED BLOOD COUNT 3.25 X10'6 (4.20-5.60); RED CELL DISTRIBUTION WIDTH 15.9 % (11.5-14.5)
[2017-06-29 05:57] LABS: ALANINE AMINOTRANSFERASE 17 U/L (12-78); ALBUMIN 2.5 G/DL (3.4-5.0); ALBUMIN/GLOBULIN RATIO 0.6 (1.1-1.5); ALKALINE PHOSPHATASE 110 IU/L (46-116); ANION GAP 12 (8-16); ASPARTATE AMINO TRANSFERASE 20 U/L (10-37); BILIRUBIN,TOTAL 0.5 MG/DL (0.1-1.0); BLOOD UREA NITROGEN 39 MG/DL (7-18); BUN/CREATININE RATIO 29.1 (6.6-38.0); CALCIUM 8.9 MG/DL (8.5-10.1); CHLORIDE 101 MMOL/L (99-107); CREATININE 1.34 MG/DL (0.40-0.90); GLUCOSE 101 MG/DL (70-104); POTASSIUM 3.4 MMOL/L (3.5-5.1); SODIUM 138 MMOL/L (135-145); TOTAL CARBON DIOXIDE 25.2 MMOL/L (24-32); TOTAL PROTEIN 6.6 G/DL (6.4-8.2); eGFR 40 ML/MIN
[2017-06-29 07:00] VITALS: BP 100/70
[2017-06-29] MEDS: furosemide 10 MG/1 ML 10ml inj IV SCH ×2 (07:41→20:00)
[2017-06-29] MEDS: docusate sod 100mg capsule PO SCH ×3 (07:42→20:07)
[2017-06-29] MEDS: levoFLOXACIN-Levaquin 750MG/D5 150 ML IV SCH (07:42)
[2017-06-29] MEDS: tacrolimus anhydrous 1mg capsule PO SCH ×2 (07:42→20:08)
[2017-06-29] MEDS: levoTHYROXINE 125mcg tablet PO SCH (07:42)
[2017-06-29] MEDS: mycophenolate mofetil 250mg capsule PO SCH ×2 (07:43→20:10)
[2017-06-29] MEDS: vitamin D (cholecalciferol) 1,000 unit tablet PO SCH (07:43)
[2017-06-29] MEDS: atorvastatin 20mg tablet PO SCH (07:43)
[2017-06-29 11:00] VITALS: BP 101/62
[2017-06-29] MEDS ORDERED: potassium Cl 40MEQ/NS 500ml 500 ML IV PRN ×2 (11:40)
[2017-06-29] MEDS ORDERED: potassium Cl 20 mEq SR tablet PO PRN (11:40)
[2017-06-29] MEDS: potassium Cl 20 mEq SR tablet PO PRN ×3 (13:11→21:39)
[2017-06-29 15:00] VITALS: BP 92/50
[2017-06-29] MEDS: lactobacillus rhamnosus 10,000 MMU CELLS/CAPSULE PO SCH (17:16)
[2017-06-29 18:00] VITALS: BP 92/54
[2017-06-29] MEDS: temazepam 15mg capsule PO PRN (21:38)
[2017-06-29 22:00] VITALS: BP 93/55
[2017-06-29] MEDS ORDERED: azithromycin/NS 500mg/250ml 250 ML IV ONE (22:15)
[2017-06-30 02:00] VITALS: BP 115/71
[2017-06-30] MEDS: nystatin 500,000 unit/5ML UD oral suspension PO SCH ×3 (02:00→14:22)
[2017-06-30] MEDS: albuterol 2.5 MG/3 ML nebule NEB SCH ×2 (02:59→08:47)
[2017-06-30 05:38] LABS: BASOPHILS % (AUTO) 0.5 % (0-1); EOSINOPHILS # (AUTO) 0.9 X10'3 (0-0.9); EOSINOPHILS % (AUTO) 10.1 % (0-6); HEMATOCRIT 30.1 % (35.0-45.0); HEMOGLOBIN 10.1 g/dl (12.0-16.0); LYMPHOCYTES # (AUTO) 1.2 X10'3 (1.1-4.8); MEAN CORPUSCULAR HEMOGLOBIN 30.6 PG (27.0-31.0); MEAN CORPUSCULAR HGB CONC 33.4 % (33.0-36.5); MEAN CORPUSCULAR VOLUME 91.4 FL (78-98); MEAN PLATELET VOLUME 7.4 FL (7.4-10.4); MONOCYTES % (AUTO) 10.7 % (2-12); NEUTROPHILS # (AUTO) 5.9 X10'3 (1.8-7.7); NEUTROPHILS % (AUTO) 65.7 % (42-75); PLATELET COUNT 317 X10'3 (140-440); RED BLOOD COUNT 3.29 X10'6 (4.20-5.60); RED CELL DISTRIBUTION WIDTH 16.2 % (11.5-14.5)
[2017-06-30 06:07] LABS: ALANINE AMINOTRANSFERASE 19 U/L (12-78); ALBUMIN 2.5 G/DL (3.4-5.0); ALBUMIN/GLOBULIN RATIO 0.6 (1.1-1.5); ALKALINE PHOSPHATASE 119 IU/L (46-116); ANION GAP 8 (8-16); ASPARTATE AMINO TRANSFERASE 24 U/L (10-37); BILIRUBIN,TOTAL 0.5 MG/DL (0.1-1.0); BLOOD UREA NITROGEN 28 MG/DL (7-18); BUN/CREATININE RATIO 25.5 (6.6-38.0); CALCIUM 9.1 MG/DL (8.5-10.1); CHLORIDE 103 MMOL/L (99-107); GLUCOSE 102 MG/DL (70-104); POTASSIUM 4.9 MMOL/L (3.5-5.1); SODIUM 136 MMOL/L (135-145); TOTAL CARBON DIOXIDE 25.4 MMOL/L (24-32); TOTAL PROTEIN 6.4 G/DL (6.4-8.2); eGFR 50 ML/MIN
[2017-06-30 07:00] VITALS: BP 105/65
[2017-06-30] MEDS: mycophenolate mofetil 250mg capsule PO SCH (07:26)
[2017-06-30] MEDS: vitamin D (cholecalciferol) 1,000 unit tablet PO SCH (07:26)
[2017-06-30] MEDS: furosemide 10 MG/1 ML 10ml inj IV SCH (07:26)
[2017-06-30] MEDS: lactobacillus rhamnosus 10,000 MMU CELLS/CAPSULE PO SCH (07:27)
[2017-06-30] MEDS: docusate sod 100mg capsule PO SCH (07:27)
[2017-06-30] MEDS: levoTHYROXINE 125mcg tablet PO SCH (07:27)
[2017-06-30] MEDS: tacrolimus anhydrous 1mg capsule PO SCH (07:27)
[2017-06-30] MEDS: atorvastatin 20mg tablet PO SCH (07:27)
[2017-06-30] MEDS ORDERED: azithromycin/NS 500mg/250ml 250 ML IV SCH (08:00)
[2017-06-30 11:00] VITALS: BP 94/63
[2017-07-01] MEDS ORDERED: levoFLOXACIN 750MG TABLET PO SCH (11:00)
== END 2017-06-30 15:00 | DRG 871 ==
LOC: ER 13:19 → ED HOLD 17:22 → PCU 3S 19:00
PROVIDERS: ADMIT Family Medicine; ATTEND Internal Medicine
PROC: 0W9B3ZZ Drainage of Left Pleural Cavity, Percutaneous Approach (ICD-10-PCS; principal; 2017-06-28)
PROC: B32T1ZZ Computerized Tomography (CT Scan) of Left Pulmonary Artery using Low Osmolar Contrast (ICD-10-PCS; 2017-06-28)
PROC: B3201ZZ Computerized Tomography (CT Scan) of Thoracic Aorta using Low Osmolar Contrast (ICD-10-PCS; 2017-06-28)
PROC: B32S1ZZ Computerized Tomography (CT Scan) of Right Pulmonary Artery using Low Osmolar Contrast (ICD-10-PCS; 2017-06-28)
DX: A41.9 Sepsis, unspecified organism (principal); I50.23 Acute on chronic systolic (congestive) heart failure; J96.01 Acute respiratory failure with hypoxia; I31.2 Hemopericardium, not elsewhere classified; J18.9 Pneumonia, unspecified organism; I31.3 Pericardial effusion (noninflammatory); J44.0 Chronic obstructive pulmonary disease with (acute) lower respiratory infection; Z94.0 Kidney transplant status; Z68.1 Body mass index [BMI] 19.9 or less, adult; I25.10 Atherosclerotic heart disease of native coronary artery without angina pectoris; Z95.2 Presence of prosthetic heart valve; Z88.0 Allergy status to penicillin; Z83.3 Family history of diabetes mellitus
CPT/HCPCS: 32555; 36415; 71045; 71250; 71275; 80053; 83605; 83735; 83880; 84100; 84484; 85025; 85610; 85730; 87040; 87070; 93005; 93308; 94640; 94760; 96365; 96366; 96375; 97116; 97162; 97530; 99285; A6449; J0456; J1940; J1956; J2001; J2270; J2930; J7030; J7507; J7517; Q9967

== ENCOUNTER → 2018-04-05 | Outpatient (CLI) | payer MEDICARE, OTHER ==
[~2018-04-05] MED LIST changes: +AMLO5TAB4 PO; +ASPI-1264 PO; -ASPI325T55 PO; +DOXY100C2 PO; -FURO-150 PO; -LACT414L5; -LEVO500T2 PO; +LISI-642 PO; -NYST1000 PO; +OMEP20TA23 PO; -PRED10TA PO; +PRED5TAB PO; +TICA90TA PO
== END | disposition home or self-care (01) ==
LOC: RAD 10:45
PROVIDERS: ATTEND Obstetrics & Gynecology
DX: N76.4 Abscess of vulva (principal); R19.00 Intra-abdominal and pelvic swelling, mass and lump, unspecified site; I50.9 Heart failure, unspecified; I11.0 Hypertensive heart disease with heart failure; I25.2 Old myocardial infarction; J44.9 Chronic obstructive pulmonary disease, unspecified; F17.210 Nicotine dependence, cigarettes, uncomplicated; E11.9 Type 2 diabetes mellitus without complications; Z94.0 Kidney transplant status; Z79.82 Long term (current) use of aspirin; Z79.899 Other long term (current) drug therapy
CPT/HCPCS: 72195

== ENCOUNTER 2019-05-24 14:39 | Emergency (ER) | payer MEDICARE, OTHER ==
[~2019-05-24] VITALS: Ht 165.1 cm; Wt 58.0 kg
[~2019-05-24 14:39] MED LIST changes: -ALEN70TA48 PO; +ALEN70TA60 PO
[2019-05-24 14:59] VITALS: BP 112/70
[2019-05-24] MEDS ORDERED: LIDOcaine 1% W/epiNEPHrine 1:200,000 10ml vial IJ ONE (15:25)
[2019-05-24] MEDS ORDERED: ACET-3067 PO (15:35)
[2019-05-24] MEDS ORDERED: CEPH500C5 PO (15:35)
== END 2019-05-24 15:46 | disposition home or self-care (01) ==
LOC: ER 14:40
DX: L03.115 Cellulitis of right lower limb (principal); I25.10 Atherosclerotic heart disease of native coronary artery without angina pectoris; J44.9 Chronic obstructive pulmonary disease, unspecified; Z98.890 Other specified postprocedural states; Z88.0 Allergy status to penicillin; Z79.82 Long term (current) use of aspirin; Z79.899 Other long term (current) drug therapy
CPT/HCPCS: 99283

== ENCOUNTER 2019-06-21 10:30 | Day surgery (SDC) | payer MEDICARE, OTHER, MEDICAID ==
[2019-06-21] MEDS ORDERED: LIDOcaine/PRILOcaine 5gm cream TP ONE (11:56)
== END 2019-06-21 12:05 | disposition home or self-care (01) ==
LOC: WOUND CARE 10:30
PROVIDERS: ATTEND Surgery
DX: I70.238 Atherosclerosis of native arteries of right leg with ulceration of other part of lower leg (principal); L97.812 Non-pressure chronic ulcer of other part of right lower leg with fat layer exposed; E78.5 Hyperlipidemia, unspecified; J44.9 Chronic obstructive pulmonary disease, unspecified; E03.9 Hypothyroidism, unspecified; I25.10 Atherosclerotic heart disease of native coronary artery without angina pectoris; H93.19 Tinnitus, unspecified ear; I10 Essential (primary) hypertension; I25.2 Old myocardial infarction; K21.9 Gastro-esophageal reflux disease without esophagitis; M19.90 Unspecified osteoarthritis, unspecified site; M81.0 Age-related osteoporosis without current pathological fracture; F03.90 Unspecified dementia, unspecified severity, without behavioral disturbance, psychotic disturbance, mood disturbance, and anxiety; F17.218 Nicotine dependence, cigarettes, with other nicotine-induced disorders; F32.9 Major depressive disorder, single episode, unspecified; Z79.82 Long term (current) use of aspirin; Z79.899 Other long term (current) drug therapy; Z98.890 Other specified postprocedural states
CPT/HCPCS: 97597

== ENCOUNTER 2019-06-28 10:37 | Day surgery (SDC) | payer MEDICARE, OTHER, MEDICAID | END 2019-06-28 12:23 | disposition home or self-care (01) | LOC: WOUND CARE 10:37 | PROVIDERS: ATTEND Surgery | DX: I70.238 Atherosclerosis of native arteries of right leg with ulceration of other part of lower leg (principal); L97.812 Non-pressure chronic ulcer of other part of right lower leg with fat layer exposed; E78.5 Hyperlipidemia, unspecified; J44.9 Chronic obstructive pulmonary disease, unspecified; E03.9 Hypothyroidism, unspecified; I25.10 Atherosclerotic heart disease of native coronary artery without angina pectoris; H93.19 Tinnitus, unspecified ear; I10 Essential (primary) hypertension; I25.2 Old myocardial infarction; K21.9 Gastro-esophageal reflux disease without esophagitis; M19.90 Unspecified osteoarthritis, unspecified site; M81.0 Age-related osteoporosis without current pathological fracture; F03.90 Unspecified dementia, unspecified severity, without behavioral disturbance, psychotic disturbance, mood disturbance, and anxiety; F17.218 Nicotine dependence, cigarettes, with other nicotine-induced disorders; F32.9 Major depressive disorder, single episode, unspecified; Z79.82 Long term (current) use of aspirin; Z79.899 Other long term (current) drug therapy; Z98.890 Other specified postprocedural states | CPT/HCPCS: 93922; 93925; 97597 ==

== ENCOUNTER 2019-07-05 10:30 | Day surgery (SDC) | payer MEDICARE, OTHER, MEDICAID ==
[2019-07-05] MEDS ORDERED: LIDOcaine/PRILOcaine 5gm cream TP ONE (11:38)
== END 2019-07-05 12:42 | disposition home or self-care (01) ==
LOC: WOUND CARE 10:30
PROVIDERS: ATTEND Surgery
DX: I70.238 Atherosclerosis of native arteries of right leg with ulceration of other part of lower leg (principal); L97.812 Non-pressure chronic ulcer of other part of right lower leg with fat layer exposed; E78.5 Hyperlipidemia, unspecified; J44.9 Chronic obstructive pulmonary disease, unspecified; E03.9 Hypothyroidism, unspecified; I25.10 Atherosclerotic heart disease of native coronary artery without angina pectoris; H93.19 Tinnitus, unspecified ear; I10 Essential (primary) hypertension; I25.2 Old myocardial infarction; K21.9 Gastro-esophageal reflux disease without esophagitis; M19.90 Unspecified osteoarthritis, unspecified site; M81.0 Age-related osteoporosis without current pathological fracture; F03.90 Unspecified dementia, unspecified severity, without behavioral disturbance, psychotic disturbance, mood disturbance, and anxiety; F17.218 Nicotine dependence, cigarettes, with other nicotine-induced disorders; F32.9 Major depressive disorder, single episode, unspecified; Z79.82 Long term (current) use of aspirin; Z79.899 Other long term (current) drug therapy; Z98.890 Other specified postprocedural states
CPT/HCPCS: C5271; Q4102; 15271